=== PATIENT | female | born 1985 | race Caucasian/White ===

== ENCOUNTER 2024-04-16 20:09 | Emergency (ER) | payer BC, SELFPAY ==
[2024-04-16 20:10] VITALS: BMI 31.8
[2024-04-16 20:18] VITALS: BP 119/79; PULSE 106; RESP 18; TEMP 38.2; O2SAT 98
--- NOTE | 2024-04-16 20:29 | PD.EDRME ---
Rapid Medical Screening Exam RME Arrival date/time: 04/16/24 20:09 38 year old female present to ED for c/o of n/v/d I have greeted and performed a focused initial assessment of this patient. A comprehensive ED assessment and evaluation of the patient, analysis of all test results, and completion of the medical decision making process will be conducted by additional ED providers. Chief Complaint: Abdominal Pain Vital signs: Vital Signs Temperature 100.7 F H 04/16/24 20:18 Pulse Rate 106 H 04/16/24 20:18 Respiratory Rate 18 04/16/24 20:18 Blood Pressure 119/79 04/16/24 20:18 Pulse Oximetry (%) 98 04/16/24 20:18 Oxygen Delivery Method Room Air 04/16/24 20:18
[2024-04-16] MEDS: SODIUM CHLORIDE 0.9% 1000 ML 1,000 ML 999 ML IV (20:51)
[2024-04-16] MEDS: ONDANSETRON ODT 4 MG TABRAP PO (20:53)
[2024-04-16] MEDS: HYDROcodone/APAP 5/325 TABLET 1 TAB PO (20:54)
[2024-04-16 21:19] LABS: HCG,Qualitative Serum Negative
[2024-04-16 21:24] LABS: Alanine Aminotransferase 30 U/L (10-49); Albumin, Serum 4.7 gm/dL (3.5-5.0); Albumin/Globulin Ratio 1.9 (1.2-2.2); Alkaline Phosphatase 105 U/L (46-116); Anion Gap 7 (7-16); Aspartate Amino Transferase 30 U/L (0-34); BUN/Creatinine Ratio 11 Ratio (12-20); Bilirubin,Total 0.9 mg/dL (0.3-1.2); Blood Urea Nitrogen 10 mg/dL (9-23); Calcium 9.2 mg/dL (8.3-10.6); Calcium (Corrected) 9.2 mg/dL (8.5-10.1); Carbon Dioxide 27.5 mMol/L (20.0-31.0); Chloride 98 mMol/L (98-107); Creatinine (Component) 0.9 mg/dL (0.6-1.3); Estimated Creatinine Clearance 75.3 mL/min (>60); Globulin 2.5 gm/dL (2.3-3.5); Glucose 108 mg/dL (74-106); Lipase 27 U/L (12-53); Osmolality,Calculated 264 (275-295); Potassium 3.4 mMol/L (3.4-5.1); Sodium 132 mMol/L (136-145); Total Protein 7.2 gm/dL (5.7-8.2); eGFR > 60 See Note
[2024-04-16 21:37] LABS: Basophils % (Auto) 0 % (0-2.5); Eosinophils # (Auto) 0.1 Thou/mm3 (0.0-0.5); Eosinophils % (Auto) 1 % (0-10); Hematocrit 39.4 % (36.0-46.0); Hemoglobin 13.4 g/dL (12.0-16.0); Immature Granulocytes % (Auto) 0 % (0-0); Immature Granulocytes Auto 0.04 Thou/mm3 (0.00-0.00); Lymphocytes # (Auto) 0.7 Thou/mm3 (1.0-4.8); Lymphocytes % (Auto) 8 % (10-50); Mean Corpuscular Hemoglobin 27.7 pg (25.0-35.0); Mean Corpuscular Volume 81 fL (80-100); Monocytes # (Auto) 0.6 Thou/mm3 (0.0-0.8); Monocytes % (Auto) 7 % (0-12); Neutrophils % (Auto) 85 % (37-80); Nucleated Red Blood Cell % 0 /100 WBC (0); Platelet Count 256 Thou/mm3 (140-440); RDW Standard Deviation 39.8 fL (36.4-46.3); Red Blood Count 4.84 Miln/mm3 (4.00-5.20); White Blood Count 9.5 Thou/mm3 (3.6-11.0)
[2024-04-16 23:04] LABS: Collection Type, Urine Voided; RBC,Urine 0 /hpf (0-3); WBC,Urine 0 /hpf (0-5)
[2024-04-16 23:23] LABS: Bilirubin,Urine Negative (Negative); Blood,Urine Negative (Negative); Clarity,Urine Clear (Clear/Hazy); Color,Urine Lt-Yellow (Lt Yel-Yel); Glucose, Urine Negative (Negative); Ketones,Urine Negative (Negative); Leukocyte Esterase,Urine Negative (Negative); Nitrite,Urine Negative (Negative); Protein,Urine Negative (Neg - Trace); Specific Gravity,Urine 1.011 (1.001-1.035); Squamous Epithelial Cell,Urine 1 /hpf (0-5); Urobilinogen,Urine Negative mg/dL (0.0-1.0)
--- NOTE | 2024-04-16 23:38 | EDNOTE_ITS ---
<Statement entered by Rolanda Dsouza MD - 04/17/24 05:12> As co-signing physician, I was present and available for consult prn. I concur with the plan and care as documented by the midlevel provider. ED Abdominal Pain RME/HPI General Chief Complaint: Abdominal Pain Stated complaint: ABD PAIN, NV/D Time seen by provider: 04/16/24 23:38 Arrival date/time: 04/16/24 20:09 38 year old female present to emergency room with c/o of n/v/d for 2 days. pt report recently had bad pizza and people that ate had similar symptoms LOCATION: generalized periumbical abdominal pain SEVERITY: Symptoms are described as being severe with limitations on activities of daily living QUALITY: Symptoms are described as being cramping CONTEXT: The patient is unable to identify any inciting events. DURATION/TIMING: The symptoms started approximately 2 day ago and have been constant this then, and have been progressive getting worse. ASSOCIATED SYMPTOMS: The patient is unable to identify any other associated symptoms. MODIFYING FACTORS: The patient is unable to identify any alleviating or aggra vating symptoms. PERTINENT ROS: reports emesis is nonbloody, diarrhea is nonbloody, no recent foreign travel, no recent ingestion of raw seafood or meat, no head trauma, no headache, no chest pain, no orthostatis symptoms, denies any focal abdominal pain, denies any toxicological ingestions REVIEW OF SYSTEMS: See History of Present Illness - with the exception of those mentioned in the history of present illness, all other systems reviewed and reported as negative GENERAL: In general the patient is awake, interactive, in an emergency department gurney. HEAD/EYES/EARS/NOSE/THROAT: normo-cephalic, atraumatic, mucus membranes are moist, anicteric, palpebral conjunctiva is pink, trachea is midline. CARDIOVASCULAR: regular rate and regular rhythm, no murmurs, heart sounds are not distant, strong pulses in all four extremities that are equal and symmetric bilateral upper and lower extremities, normal capillary refill. CHEST/PULMONARY: normal chest rise and fall, good air movement, clear to auscultation bilaterally, normal inspiratory to expiratory ratios without evidence of respiratory distress. NECK: No midline/Paraspinal tenderness, no step off ROM/Strenght intact No Kernig and bruzinski sign. No trauma ABDOMEN: soft, generalized abdominal tenderness no masses appreciated BACK: normal range of motion without pain. NEUROLOGICAL: cranio-facial features are symmetric, moves all four extremities equally without obvious limitations or weakness. EXTREMITY: no tenderness to palpation over the long bones or large joints of the bilateral upper and lower extremities, no joint swelling, no joint erythema, no signs of trauma, no unilateral leg swelling and no peripheral edema. SKIN: warm, dry, well-perfused, no jaundice, no rash, no telangiectasias or petechia. PSYCH: calm, cooperative, no evidence of psychosis or agitation RME / HPI RME / HPI narrative: 04/16/24 20:09 38 year old female present to ED for c/o of n/v/d I have greeted and performed a focused initial assessment of this patient. A comprehensive ED assessment and evaluation of the patient, analysis of all test results, and completion of the medical decision making process will be conducted by additional ED providers. Related Data Home Medications ?Medication ?Instructions ?Recorded ?Confirmed escitalopram oxalate 20 mg tablet 20 mg PO QDAY 06/21/18 05/24/19 (Lexapro) fluticasone 500 mcg-salmeterol 50 1 inh inhalation BID 06/21/18 05/24/19 mcg/dose blistr powdr for inhalation (Advair Diskus) lorazepam 0.5 mg tablet (Ativan) 0.5 mg PO BID 06/21/18 05/24/19 montelukast 10 mg tablet 10 mg PO QPM 06/21/18 05/24/19 (Singulair) pantoprazole 20 mg tablet,delayed 20 mg PO QDAY 06/21/18 05/24/19 release (Protonix) propranolol 40 mg tablet 40 mg PO BID 06/21/18 05/24/19 ranitidine HCl 150 mg tablet 150 mg PO BID 06/21/18 05/24/19 sumatriptan succinate 100 mg 100 mg PO Q2H PRN Migraine Headache 06/21/18 05/24/19 tablet (Imitrex) Previous Rx's ?Medication ?Instructions ?Recorded cyclobenzaprine 7.5 mg tablet 7.5 mg PO BID PRN muscle spasm #20 03/07/19 tabs benzonatate 100 mg capsule See Rx Instructions .Route 05/24/19 (Navin Avina) .COMPLEX cough #30 caps cetirizine 5 mg-pseudoephedrine ER 1 tab PO Q12H #20 tabs 05/24/19 120 mg tablet,extended release,12hr (Zyrtec-D) ipratropium bromide 21 mcg (0.03 See Rx Instructions .Route 05/24/19 %) nasal spray .COMPLEX #30 mL prednisone 20 mg tablet See Rx Instructions PO QAM #9 tabs 05/24/19 ondansetron 4 mg disintegrating 4 mg PO Q8H PRN nausea and 04/16/24 tablet vomiting #20 tabs Allergies Allergy/AdvReac Type Severity Reaction Status Date / Time ciprofloxacin Allergy Unknown Verified 02/27/21 13:36 doxycycline Allergy Unknown Verified 02/27/21 13:36 gluten Allergy Abdominal Verified 02/27/21 13:36 Pain Course Course Course Narrative: Patient presenting with nausea, vomiting, and diarrhea.? Vital signs were reviewed.? Patient afebrile.? Abdominal exam is benign.? No evidence of acute surgical emergency or infection requiring antibiotics.? I considered biliary disease, bowel obstruction, colitis, mesenteric ischemia, appendicitis, urinary tract infection, infectious diarrhea, however, these are less likely given the history and exam.? While in ED patient was provided with IV fluids, zofran 4mg at which point patient stated that their symptoms had improved. Provided with prescription for zofran . Advised to continue Ibuprofen and Tylenol at home as needed for pain/fever. Patient is to followup with primary physician if symptoms continue. Advised to return to the ER if concern for inability to tolerate PO intake, dehydration, or other concerns. Plan:?? Discharge from ETC Ibuprofen/Acetaminophen for Pain/Fever Prescription for ondansetron for nausea. Pt was advised on supportive therapies, including increasing dietary fiber, eating smaller meals, refrain from eating copious amounts of irritating foods (fatty foods, milk products, chocolate, and caffeine), maintaining a food diary, advancing fluids as tolerated, refraining from EtOH consumption, decreasing stress, and increasing exercise. Maintain Fluid Intake: Pedialyte/Gatorade, Juice, Non-caffeinated Pop (Sprite) Patient to follow up with PCP or in ER should symptoms worsen or not improve. Patient verbally expressed understanding and all questions were addressed. Quality Measures none Orders Category Date Time Status Insert IV NOW Care 04/16/24 20:47 Completed CBC Stat Lab 04/16/24 20:41 Completed CMP [Comprehensive Metabolic Panel] Stat Lab 04/16/24 20:41 Completed HCG,Qualitative Serum Stat Lab 04/16/24 20:41 Completed Lipase Stat Lab 04/16/24 20:41 Completed UA [Urinalysis] Stat Lab 04/16/24 22:45 Completed Urine Culture Stat Lab 04/16/24 22:45 Received HYDROcodone*/APAP 5/325 [[place] 5/325] Med 04/16/24 20:28 Discontinued 1 tab PO X1 ONE Ondansetron Odt [Zofran Odt] Med 04/16/24 20:28 Discontinued 4 mg PO X1 ONE Sodium Chloride 0.9% 1000 ml [Ns] 1,000 ml Med 04/16/24 20:29 Discontinued IV 999 mls/hr Reevaluation(s) Reevaluation #1: pt is feeling better and comfortable to go home Vital Signs Vital signs: Vital Signs Temperature 100.7 F H 04/16/24 20:18 Pulse Rate 106 H 04/16/24 20:18 Respiratory Rate 18 04/16/24 20:18 Blood Pressure 119/79 04/16/24 20:18 Pulse Oximetry (%) 98 04/16/24 20:18 Oxygen Delivery Method Room Air 04/16/24 20:18 Abdominal Pain MDM Patient data External records reviewed:: None Clinical information provided by:: patient and family Social determinants that could affect healthcare access:: none Patient has the following chronic illnesses:: none How is presenting disease/condition affected by chronic disease/condition?: no chronic disease Evaluation data The following diagnostics were reviewed and interpreted by me:: lab results Lab and/or radiology exams considered but not ordered:: none Interpretation Summary: labs wnl Medications / Prescriptions Medications or Prescriptions considered but not ordered:: none Medication administrations:: Medication Administration History Discontinued Medications Hydrocodone Bitart/Acetaminophen (Hydrocodone/Apap 5/325 Tablet) 1 tab PO X1 ONE Stop: 04/16/24 20:29 Last Admin: 04/16/24 20:54 Dose: 1 tab Documented By: ERIN Sodium Chloride (Ns) 1,000 mls @ 999 mls/hr IV .Q1H1M ONE Stop: 04/16/24 21:29 Last Infusion: 04/16/24 22:59 Dose: Infused Documented By: Admin: 11/30/24 20:51 Dose: 999 mls/hr Documented By: ERIN Ondansetron HCl (Ondansetron Odt 4 Mg Tabrap) 4 mg PO X1 ONE; Protocol Stop: 04/16/24 20:29 Last Admin: 04/16/24 20:53 Dose: 4 mg Documented By: ERIN as state above Consultations Consultation(s) initiated? (list below): No Diagnosis Differential diagnosis abdominal pain: abdominal pain, gastroenteritis, pancreatitis and other (UTI ) Most likely diagnosis given after review of the tests above:: gastroenteritis Admission Indicated Admission indicated?: not indicated Admission Request Was there a request for admission?: No Disposition Plan Disposition Plan: Discharge Discharge Attestation Discharge Attestation: The patient and all family members were given an opportunity to ask questions and understood the discharge instructions. Discharge instructions specifically effects, indications for sooner follow up or return to the emergency department, and the expected course of current diagnosis. Patient condition: Stable Discharge Plan Plan Patient Disposition: HOME (Self Care) Health Concerns: Follow with PMD as directed Take tylenol or motrin as need Return to ED if sx worsen Prescriptions/Referrals Prescriptions/Med Rec: New ondansetron 4 mg tablet,disintegrating 4 mg PO Q8H PRN (Reason: nausea and vomiting) Qty: 20 0RF No Action ipratropium bromide 0.03 % spray,non-aerosol See Rx Instructions .Route .COMPLEX Qty: 30 0RF Rx Instructions: 2 sprays to each nostril q6-8 hours prn congestion; wait 30 seconds between sprays prednisone 20 mg tablet See Rx Instructions PO QAM Qty: 9 0RF Rx Instructions: PO QAM; Take 40mg (2 tabs) PO QAM x 3 days, then 20mg (1 tab) PO QAM x 3 days benzonatate [Tessalon Perles] 100 mg capsule See Rx Instructions .Route .COMPLEX Qty: 30 0RF Rx Instructions: 1-2 cap(s) PO Q8 hours prn cough cetirizine-pseudoephedrine [Zyrtec-D] 5-120 mg tablet extended release 12 hr 1 tab PO Q12H Qty: 20 0RF cyclobenzaprine 7.5 mg tablet 7.5 mg PO BID PRN (Reason: muscle spasm) Qty: 20 0RF sumatriptan succinate [Imitrex] 100 mg Tablet 100 mg PO Q2H PRN (Reason: Migraine Headache) pantoprazole [Protonix] 20 mg Tablet,Delayed Release (Dr/Ec) 20 mg PO QDAY propranolol 40 mg Tablet 40 mg PO BID lorazepam [Ativan] 0.5 mg Tablet 0.5 mg PO BID ranitidine HCl 150 mg Tablet 150 mg PO BID fluticasone propion-salmeterol [Advair Diskus] 500-50 mcg/dose Blister With Device 1 inh INHALATION BID montelukast [Singulair] 10 mg Tablet 10 mg PO QPM escitalopram oxalate [Lexapro] 20 mg Tablet 20 mg PO QDAY Referrals: Estrellita Marshall MD [Primary Care Provider] - In 1 week Problem List Clinical Impression: Abdominal pain Patient/Caregiver Discharge Instructions Education Materials: Abdominal Pain Print Language: Uzbek Stand Alone Forms: Janice Award Info., Patient Portal Info Letter
[2024-04-16 23:53] VITALS: BP 110/70; PULSE 94; RESP 18; TEMP 37.2; O2SAT 96
== END 2024-04-16 23:54 | disposition home or self-care (01) ==
PROVIDERS: Physician Assistant; Emergency Provider Emergency Medicine; PCP Internal Medicine
DX: R10.84 Generalized abdominal pain (principal); R11.2 Nausea with vomiting, unspecified; R19.7 Diarrhea, unspecified
CPT/HCPCS: 36415; 80053; 81001; 83690; 84703; 85025; 87086; 96360; 96361; 99284; J7030; Q0162; A9270

== ENCOUNTER 2025-02-25 15:11 | Inpatient (IN) | payer BC, SELFPAY ==
[2025-02-25 15:12] VITALS: BMI 22.8
[2025-02-25 15:39] VITALS: BP 133/89; PULSE 92; RESP 18; TEMP 36.7; O2SAT 96; BMI 20.4
--- NOTE | 2025-02-25 16:09 | XR_ITS ---
Examination: CT abdomen with intravenous contrast CT pelvis with intravenous contrast 2-D coronal reconstructions 2-D sagittal reconstructions Date and time of exam: February 25, 2025, 0752 hours INDICATIONS: Lower abdominal pain bloody stools beginning 2 days ago COMPARISON: May 21, 2019. CTDI: vol (mGy) 4.62 DLP: (mGycm) 216 Technique: Multiple axial sections of the abdomen and pelvis have been obtained. 64 slice high-resolution scanner used. 3 mm axial sections have been obtained, post intravenous injection 60 cc [id number] 2-D sagittal, coronal reconstructions obtained. Low dose protocols were performed. One or more of the following dose reduction techniques were used; automated exposure control, adjustment of the mA and/or KV according to patient size, use of iterative reconstruction technique. Findings: No focal liver or splenic lesions. Absent gallbladder No pancreatic mass. No renal or ureteral calculi, no hydronephrosis Fluid-filled small bowel loops in the pelvis Absent appendix No diverticulitis Intact urinary bladder No pelvic mass Rectal wall does not appear thickened Moderate to advanced disc narrowing L5-S1 IMPRESSION: No renal or ureteral calculi, no hydronephrosis Absent appendix Fluid distended small bowel loops, consider ileus, enteritis such as Crohn disease Rectal wall does not appear thickened
--- NOTE | 2025-02-25 16:09 | PD.EDABDPN ---
ED Abdominal Pain RME/HPI General Chief Complaint: Abdominal Pain Stated complaint: ABD PAIN WITH BLACK TARRY STOOL TODAY Time seen by provider: 02/25/25 16:02 Arrival date/time: 02/25/25 15:11 Limitations: no limitations RME / HPI RME / HPI narrative: 39-year-old female with 2-day history of worsening abdominal pain nausea vomiting and black stools that started today. Denies history of alcohol abuse or daily NSAID use. Does have an extensive surgical history. Including lap maged, hysterectomy and nephrectomy, appendectomy. Denies history of small bowel obstruction in the past. No fever. States the abdominal pain is diffuse. And did have a bowel movement this morning and that is how she noticed the black stools and what prompted her to come in. Related Data Home Medications ?Medication ?Instructions ?Recorded ?Confirmed escitalopram oxalate 20 mg tablet 20 mg PO QDAY 06/21/18 05/24/19 (Lexapro) fluticasone 500 mcg-salmeterol 50 1 inh inhalation BID 06/21/18 05/24/19 mcg/dose blistr powdr for inhalation (Advair Diskus) lorazepam 0.5 mg tablet (Ativan) 0.5 mg PO BID 06/21/18 05/24/19 montelukast 10 mg tablet 10 mg PO QPM 06/21/18 05/24/19 (Singulair) pantoprazole 20 mg tablet,delayed 20 mg PO QDAY 06/21/18 05/24/19 release (Protonix) propranolol 40 mg tablet 40 mg PO BID 06/21/18 05/24/19 ranitidine HCl 150 mg tablet 150 mg PO BID 06/21/18 05/24/19 sumatriptan succinate 100 mg 100 mg PO Q2H PRN Migraine Headache 06/21/18 05/24/19 tablet (Imitrex) Previous Rx's ?Medication ?Instructions ?Recorded cyclobenzaprine 7.5 mg tablet 7.5 mg PO BID PRN muscle spasm #20 03/07/19 tabs benzonatate 100 mg capsule See Rx Instructions .Route 05/24/19 (Navin Avina) .COMPLEX cough #30 caps cetirizine 5 mg-pseudoephedrine ER 1 tab PO Q12H #20 tabs 05/24/19 120 mg tablet,extended release,12hr (Zyrtec-D) ipratropium bromide 21 mcg (0.03 See Rx Instructions .Route 05/24/19 %) nasal spray .COMPLEX #30 mL prednisone 20 mg tablet See Rx Instructions PO QAM #9 tabs 05/24/19 ondansetron 4 mg disintegrating 4 mg PO Q8H PRN nausea and 04/16/24 tablet vomiting #20 tabs Allergies Allergy/AdvReac Type Severity Reaction Status Date / Time ciprofloxacin Allergy Unknown Verified 02/25/25 15:15 doxycycline Allergy Unknown Verified 02/25/25 15:15 gluten Allergy Abdominal Verified 02/25/25 15:15 Pain Review of Systems Review of Systems Systems Reviewed: All systems reviewed, normal except as documented Gastrointestinal Gastrointestinal: Reports as per HPI ED Exam General Limitations: Present no limitations General appearance: Present alert and in no apparent distress Head Head exam: Present atraumatic Eye Eye exam: Present normal appearance, PERRL and EOMI ENT ENT exam: Present normal exam, normal oropharynx and mucous membranes moist Neck Neck exam: Present normal inspection, full ROM and trachea midline Chest Chest inspection: Present normal inspection and symmetric chest wall rise Respiratory Respiratory exam: Present normal lung sounds bilaterally Cardiovascular Cardiovascular exam: Present regular rate, normal rhythm and normal heart sounds Abdominal Exam Abdominal exam: Present soft, tenderness (diffuse ttp) and normal bowel sounds Rectal Exam Rectal exam: Present black stool Extremities Exam Extremities exam: Present normal inspection and full ROM Back Exam Back exam: Present normal inspection and full ROM Neurological Exam Neurological exam: Present alert, oriented X3 and CN II-XII intact Psychiatric Psychiatric exam: Present normal affect and normal mood Skin Skin exam: Present warm, dry, intact and normal color Course Quality Measures none Orders Category Date Time Status CT Screening NOW Care 02/25/25 16:10 Active Insert IV NOW Care 02/25/25 16:09 Active Insert NG / OG tube NOW Care 02/25/25 21:[address] abdomen pelvis w con Stat Exams 02/25/25 16:09 Completed Beta HCG,Quantitative Stat Lab 02/25/25 18:20 Completed CBC Stat Lab 02/25/25 16:27 Completed CMP [Comprehensive Metabolic Panel] Stat Lab 02/25/25 16:27 Completed Drug Screen,Urine Stat Lab 02/25/25 18:32 Completed HCG,Qualitative Serum Stat Lab 02/25/25 16:27 Completed Lipase Stat Lab 02/25/25 16:27 Completed PT [Prothrombin Time with INR] Stat Lab 02/25/25 16:27 Completed Type and Screen Stat Lab 02/25/25 17:04 Completed UA [Urinalysis] Stat Lab 02/25/25 18:32 Completed ALPRazoLAM [Xanax] Med 02/25/25 18:24 Discontinued 1 mg PO X1 ONE DiphenhydrAMINE INJ [Benadryl Inj] Med 02/25/25 21:26 Discontinued 12.5 mg IVP X1 ONE HYDROcodone*/APAP 5/325 [[place] 5/325] Med 02/25/25 16:09 Discontinued 1 tab PO X1 ONE Morphine* Inj Med 02/25/25 19:33 Discontinued 4 mg IVP X1 ONE Morphine* Inj Med 02/25/25 21:27 Discontinued 4 mg IVP X1 ONE Ondansetron Inj [Zofran Inj] Med 02/25/25 21:26 Discontinued 4 mg IVP X1 ONE Ondansetron Odt [Zofran Odt] Med 02/25/25 18:24 Discontinued 4 mg PO X1 ONE Pantoprazole Inj [Protonix Inj] Med 02/25/25 21:40 Discontinued 80 mg IVP X1 ONE fentaNYL INJ [Sublimaze Inj] Med 02/25/25 18:16 Discontinued 75 mcg IVP X1 ONE Vital Signs Vital signs: Vital Signs Temperature 98.1 F 02/25/25 15:39 Pulse Rate 92 02/25/25 15:39 Respiratory Rate 18 02/25/25 15:39 Blood Pressure 133/89 H 02/25/25 15:39 Pulse Oximetry (%) 96 02/25/25 15:39 Oxygen Delivery Method Room Air 02/25/25 15:39 Abdominal Pain MDM Patient data External records reviewed:: [facility] previous records Clinical information provided by:: patient and family Social determinants that could affect healthcare access:: other (specify) Patient has the following chronic illnesses:: Extensive surgical history How is presenting disease/condition affected by chronic disease/condition?: exacerbated by Evaluation data The following diagnostics were reviewed and interpreted by me:: lab results and radiology exam(s) Lab and/or radiology exams considered but not ordered:: All imaging considered was ordered Interpretation Summary: CBC with no anemia normal CMP normal lipase Abnormal hCG suspect false positive due to no uterus CT did show fluid-filled small bowel loops Medications / Prescriptions Medications or Prescriptions considered but not ordered:: all meds considered were given Medication administrations:: Medication Administration History Discontinued Medications Hydrocodone Bitart/Acetaminophen (Hydrocodone/Apap 5/325 Tablet) 1 tab PO X1 ONE Stop: 02/25/25 16:10 Last Admin: 02/25/25 16:44 Dose: 1 tab Documented By: ED Alprazolam (Alprazolam 0.25 Mg Tablet) 1 mg PO X1 ONE Stop: 02/25/25 18:25 Last Admin: 02/25/25 18:36 Dose: 1 mg Documented By: TM Diphenhydramine HCl (Diphenhydramine Inj 50 Mg/Ml Vial) 12.5 mg IVP X1 ONE Stop: 02/25/25 21:27 Fentanyl Citrate (Fentanyl Cit Inj 50 Mcg/Ml Amp 2ml) 75 mcg IVP X1 ONE Stop: 02/25/25 18:17 Last Admin: 02/25/25 18:31 Dose: 75 mcg Documented By: TM Morphine Sulfate (Morphine Sulf Inj 4 Mg/Ml Vial) 4 mg IVP X1 ONE Stop: 02/25/25 19:34 Last Admin: 02/25/25 19:42 Dose: 4 mg Documented By: CCT Morphine Sulfate (Morphine Sulf Inj 4 Mg/Ml Vial) 4 mg IVP X1 ONE Stop: 02/25/25 21:28 Ondansetron HCl (Ondansetron Odt 4 Mg Tabrap) 4 mg PO X1 ONE; Protocol Stop: 02/25/25 18:25 Last Admin: 02/25/25 18:36 Dose: 4 mg Documented By: TM Ondansetron HCl (Ondansetron Inj 2 Mg/Ml Inj 2 Ml) 4 mg IVP X1 ONE; Protocol Stop: 02/25/25 21:27 Pantoprazole Sodium (Pantoprazole Inj 40 Mg Vial) 80 mg IVP X1 ONE Stop: 02/25/25 21:41 see above Consultations Consultation(s) initiated? (list below): Yes Consultation #1 (Physician, Specialty, Details): Spoke with Dr. Hernandez agrees with admission Time: 21:43 Diagnosis Differential diagnosis abdominal pain: abdominal pain, acute appendicitis, constipation, diverticulitis, gastroenteritis, pancreatitis, small bowel obstruction and other (GI bleed) Most likely diagnosis given after review of the tests above:: 1. Small bowel ileus 2. Melena 3. vomiting 4. abdominal pain Admission Indicated Admission indicated?: indicated Admission Request Was there a request for admission?: Yes Admission Attestation Admission request attestation: Discussed case with [] from Hospitalist service regarding admission. Discussed patients ED course, exam findings, labs, and radiology results. The Hospitalist [agrees,declines] to accept the patient for admission. Disposition Plan Disposition Plan: Admit Discharge Plan Plan Patient Disposition: Admit Acute Care w/in Hospital Discharge Disposition comment: stable at time of admit, admitted to Dr. Hernandez Prescriptions/Referrals Prescriptions/Med Rec: No Action ipratropium bromide 0.03 % spray,non-aerosol See Rx Instructions .Route .COMPLEX Qty: 30 0RF Rx Instructions: 2 sprays to each nostril q6-8 hours prn congestion; wait 30 seconds between sprays prednisone 20 mg tablet See Rx Instructions PO QAM Qty: 9 0RF Rx Instructions: PO QAM; Take 40mg (2 tabs) PO QAM x 3 days, then 20mg (1 tab) PO QAM x 3 days benzonatate [Tessalon Perles] 100 mg capsule See Rx Instructions .Route .COMPLEX Qty: 30 0RF Rx Instructions: 1-2 cap(s) PO Q8 hours prn cough cetirizine-pseudoephedrine [Zyrtec-D] 5-120 mg tablet extended release 12 hr 1 tab PO Q12H Qty: 20 0RF cyclobenzaprine 7.5 mg tablet 7.5 mg PO BID PRN (Reason: muscle spasm) Qty: 20 0RF sumatriptan succinate [Imitrex] 100 mg Tablet 100 mg PO Q2H PRN (Reason: Migraine Headache) pantoprazole [Protonix] 20 mg Tablet,Delayed Release (Dr/Ec) 20 mg PO QDAY propranolol 40 mg Tablet 40 mg PO BID lorazepam [Ativan] 0.5 mg Tablet 0.5 mg PO BID ranitidine HCl 150 mg Tablet 150 mg PO BID fluticasone propion-salmeterol [Advair Diskus] 500-50 mcg/dose Blister With Device 1 inh INHALATION BID montelukast [Singulair] 10 mg Tablet 10 mg PO QPM escitalopram oxalate [Lexapro] 20 mg Tablet 20 mg PO QDAY ondansetron 4 mg tablet,disintegrating 4 mg PO Q8H PRN (Reason: nausea and vomiting) Qty: 20 0RF Referrals: Estrellita Marshall MD [Primary Care Provider] - In 1 week Problem List Clinical Impression: Ileus, Melena, Vomiting, Abdominal pain Patient/Caregiver Discharge Instructions Print Language: Malay Stand Alone Forms: Janice Award Info., Patient Portal Info Letter PA/PLUMBING CONTRACTOR Supervising Physician PA/PLUMBING CONTRACTOR Supervising Physician: Dr. henry
[2025-02-25] MEDS: HYDROcodone/APAP 5/325 TABLET 1 TAB PO (16:44)
[2025-02-25 17:00] LABS: Basophils # (Auto) 0.1 Thou/mm3 (0.0-0.2); Basophils % (Auto) 1 % (0-2.5); Eosinophils # (Auto) 0.1 Thou/mm3 (0.0-0.5); Eosinophils % (Auto) 2 % (0-10); Hematocrit 41.0 % (36.0-46.0); Hemoglobin 14.5 g/dL (12.0-16.0); Immature Granulocytes Auto 0.02 Thou/mm3 (0.00-0.00); Lymphocytes # (Auto) 2.8 Thou/mm3 (1.0-4.8); Lymphocytes % (Auto) 40 % (10-50); Mean Corpuscular HGB Conc 35.4 g/dl (31.0-37.0); Mean Corpuscular Hemoglobin 28.9 pg (25.0-35.0); Mean Corpuscular Volume 82 fL (80-100); Monocytes # (Auto) 0.6 Thou/mm3 (0.0-0.8); Monocytes % (Auto) 8 % (0-12); Neutrophils # (Auto) 3.4 Thou/mm3 (1.8-7.7); Neutrophils % (Auto) 49 % (37-80); Nucleated Red Blood Cell # 0.00 Thou/mm3 (0.00-0.00); Nucleated Red Blood Cell % 0 /100 WBC (0); Platelet Count 295 Thou/mm3 (140-440); RDW Standard Deviation 38.0 fL (36.4-46.3); Red Blood Count 5.02 Miln/mm3 (4.00-5.20); White Blood Count 7.0 Thou/mm3 (3.6-11.0)
[2025-02-25 17:12] LABS: INR 1.0 (0.9-1.3); Prothrombin Time 10.9 Seconds (9.0-12.2)
[2025-02-25 17:17] LABS: HCG,Qualitative Serum Positive
[2025-02-25 17:20] LABS: Alanine Aminotransferase 12 U/L (10-49); Albumin, Serum 4.4 gm/dL (3.5-5.0); Albumin/Globulin Ratio 1.8 (1.2-2.2); Alkaline Phosphatase 67 U/L (46-116); Anion Gap 13 (7-16); Aspartate Amino Transferase 17 U/L (0-34); BUN/Creatinine Ratio 6 Ratio (12-20); Bilirubin,Total 0.4 mg/dL (0.3-1.2); Blood Urea Nitrogen 5 mg/dL (9-23); Calcium 9.9 mg/dL (8.3-10.6); Calcium (Corrected) 9.9 mg/dL (8.5-10.1); Carbon Dioxide 26.0 mMol/L (20.0-31.0); Chloride 102 mMol/L (98-107); Creatinine (Component) 0.9 mg/dL (0.6-1.3); Estimated Creatinine Clearance 70.9 mL/min (>60); Globulin 2.4 gm/dL (2.3-3.5); Glucose 102 mg/dL (74-106); Lipase 32 U/L (12-53); Osmolality,Calculated 278 (275-295); Potassium 3.4 mMol/L (3.4-5.1); Sodium 141 mMol/L (136-145); Total Protein 6.8 gm/dL (5.7-8.2); eGFR > 60 See Note
[2025-02-25 17:33] VITALS: BP 151/96; PULSE 82; RESP 19; TEMP 36.9; O2SAT 98
--- NOTE | 2025-02-25 17:56 | PC.NURSE ---
SPOKE W/BANK OFFICER WHO TOOK BLOOD, PTS HCG CAME BACK POSITIVE, TOLD BANK OFFICER WE WILL NEED A RE-DRAW TO CONFIRM PT STATES SHE HAS HAD A HYSTERECTOMY AND IT IS NOT POSSIBLE FOR HER TO BE
--- NOTE | 2025-02-25 18:04 | PC.NURSE ---
SPOKE W/SAMIRA AT THE LAB WHO WILL LOOK INTO RESULTS
[2025-02-25] MEDS: fentaNYL CIT INJ 50 mCg/ML AMP 2ML 75 MCG IVP (18:31)
[2025-02-25] MEDS: ONDANSETRON ODT 4 MG TABRAP PO (18:36)
[2025-02-25 18:40] LABS: Collection Type, Urine Clean Catch; RBC,Urine 0 /hpf (0-3); Squamous Epithelial Cell,Urine 0 /hpf (0-5)
[2025-02-25 18:49] LABS: Bilirubin,Urine Negative (Negative); Blood,Urine Negative (Negative); Clarity,Urine Clear (Clear/Hazy); Color,Urine Lt-Yellow (Lt Yel-Yel); Glucose, Urine Negative (Negative); Ketones,Urine Negative (Negative); Leukocyte Esterase,Urine Negative (Negative); Nitrite,Urine Negative (Negative); PH,Urine 8.0 (5.0-7.0); Protein,Urine Negative (Neg - Trace); Specific Gravity,Urine 1.006 (1.001-1.035); Urobilinogen,Urine Negative mg/dL (0.0-1.0); WBC,Urine 1 /hpf (0-5)
[2025-02-25 18:55] LABS: Amphetamine/Methamp Scrn,U Negative (Negative); Barbiturate Screen,Urine Negative (Negative); Benzodiazepines Screen,Urine Negative (Negative); Benzoylecgonine Screen, Ur Negative (Negative); Fentanyl Screen,Urine Negative (Negative); Opiate Screen,Urine Negative (Negative); THC Screen,Urine Negative (Negative)
[2025-02-25 19:15] LABS: Beta HCG,Quantitative 7 mIU/mL (<5.0)
[2025-02-25 19:33] VITALS: BP 141/102; PULSE 79; RESP 18; TEMP 36.4; O2SAT 99
[2025-02-25] MEDS: MORPHINE SULF INJ 4 MG/ML VIAL IVP ×2 (19:42→21:55)
--- NOTE | 2025-02-25 19:53 | PC.NURSE ---
Pt taken to CT via [facility]
[2025-02-25] MEDS: ONDANSETRON INJ 2 MG/ML INJ 2 ML 4 MG IVP (21:55)
[2025-02-25 23:00] VITALS: BP 128/100; PULSE 89; RESP 16; TEMP 36.6; O2SAT 99
--- NOTE | 2025-02-25 23:02 | PD.RESHP ---
Documentation for date of: 02/25/25 HPI History of Present Illness Chief complaint: Abdominal pain and melena. History of present illness: This is a 39 years old female with past medical history of duodenal ulcers, gastric ulcers cholecystectomy ,appendectomy, bilateral oophorectomy with hysterectomy, multinodular goiter, asthma, RICK, GERD, IBS presented to the ED with complaints of abdominal pain and melena. She has been experiencing multiple episodes of dark brown stools approximately 5 times since yesterday. She has been experiencing umbilical abdominal pain since yesterday associated with nausea and bilious vomiting approximately 5 episodes since morning. She says this abdominal pain is 10 out of 10 on pain scale radiating to the back. She denies any urinary frequency, urgency, chest pain, chest palpitations, fevers ,cough. She denies any intake of painkillers like ibuprofen and iron pills. On ED visit vitals BP 128/100, pulse rate 95, respiratory 16, temperature 97.9 saturating 98% on room. Labs- Beta HcG -Positive Pertinent imaging findings CT abdomen showing fluid distended small bowel loops?consider ileus or enteritis. Past medical history: Multinodular goiter not on any medications, asthma on medications, RICK?CPAP, GERD takes omeprazole, IBS, anxiety takes medication. Takes Zepbound. Past surgical history: Cholecystectomy, appendectomy, B/L salpingoopherectomy takes hormonal contraceptives. Allergic history: Sensitive to gluten, ciprofloxacin. Family history: History of Crohn disease in her sister, breast cancer in grandmother, ovarian cancer on her maternal side. Social history: Denies any alcohol ,smoking or any other drug usage. Review of Systems Review of Systems Systems Reviewed: All systems reviewed, normal except as documented Exam Vital Signs Temp Pulse Resp BP Pulse Ox O2 Del Method 97.5 F 79 18 141/102 H 99 Room Air 02/25/25 19:33 02/25/25 19:33 02/25/25 19:33 02/25/25 19:33 02/25/25 19:33 02/25/25 19:33 Narrative Exam GENERAL: NAD, AAOx3 HEENT: Moist mucosa. Eyes open, symmetrical, & clear CARDIO: Rapid regular rhythm Noted. No Murmurs. PULM: No noted coughing/dyspnea CTA B/L, no R/W/R GI: Abdomen soft, nondistended, Tenderness on palpation of umbilical ,suprapubic and LLQ. SKIN/MSK/EXT: No wounds/rashes/amputations, no pain on palpation,edema. Pedal pulses present B/L NEURO: AAOx3, no focal neuro deficits, able to move all 4 extremities Results: Labs 02/26/25 02:33 02/26/25 02:33 Labs: Short CBC 02/25/25 Range/Units 16:27 WBC 7.0 (3.6-11.0) Thou/mm3 Hgb 14.5 (12.0-16.0) g/dL Hct 41.0 (36.0-46.0) % Plt Count 295 (140-440) Thou/mm3 BMP 02/25/25 16:27 Sodium 141 Potassium 3.4 Chloride 102 Carbon Dioxide 26.0 BUN 5 L Creatinine 0.9 Glucose 102 Calcium 9.9 Liver Function 02/25/25 Range/Units 16:27 Total Bilirubin 0.4 (0.3-1.2) mg/dL AST 17 (0-34) U/L ALT 12 (10-49) U/L Alkaline Phosphatase 67 (46-116) U/L Albumin 4.4 (3.5-5.0) gm/dL Urine 02/25/25 Range/Units 18:32 Urine Color Lt-Yellow (Lt Yel-Yel) Urine Clarity Clear (Clear/Hazy) Urine pH 8.0 H (5.0-7.0) Ur Specific [place] 1.006 (1.001-1.035) Urine Protein Negative (Neg - Trace) Urine Glucose (UA) Negative (Negative) Quality Measures Quality Measures none Medications Home Medications and Allergies Home Medications ?Medication ?Instructions ?Recorded ?Confirmed ?Type escitalopram oxalate 20 mg tablet 20 mg PO HS 06/21/18 02/26/25 History (Lexapro) bupropion HCl 100 mg tablet 100 mg PO BID 02/26/25 02/26/25 History omeprazole 40 mg capsule,delayed 40 mg PO QAM 02/26/25 02/26/25 History release Allergies Allergy/AdvReac Type Severity Reaction Status Date / Time ciprofloxacin Allergy Unknown Verified 02/25/25 15:15 doxycycline Allergy Unknown Verified 02/25/25 15:15 gluten Allergy Abdominal Verified 02/25/25 15:15 Pain Visit Medications Acetaminophen (Acetaminophen 325 Mg Tablet) 650 mg PO Q6H PRN PRN Reason: Fever >100.4 Stop: 03/27/25 22:52 Acetaminophen (Acetaminophen 325 Mg Tablet) 650 mg PO Q6H PRN PRN Reason: PAIN SCALE 1-3 (mild Stop: 03/27/25 22:58 Morphine Sulfate (Morphine Sulf Inj 4 Mg/Ml Vial) 4 mg IVP Q4HR PRN PRN Reason: abdominal pain Stop: 03/02/25 22:58 Ondansetron HCl (Ondansetron Inj 2 Mg/Ml Inj 2 Ml) 4 mg IVP Q6H PRN; Protocol PRN Reason: NAUSEA OR VOMITING Stop: 03/27/25 22:52 Discontinued Medications Hydrocodone Bitart/Acetaminophen (Hydrocodone/Apap 5/325 Tablet) 1 tab PO X1 ONE Stop: 02/25/25 16:10 Last Admin: 02/25/25 16:44 Dose: 1 tab Alprazolam (Alprazolam 0.25 Mg Tablet) 1 mg PO X1 ONE Stop: 02/25/25 18:25 Last Admin: 02/25/25 18:36 Dose: 1 mg Diphenhydramine HCl (Diphenhydramine Inj 50 Mg/Ml Vial) 12.5 mg IVP X1 ONE Stop: 02/25/25 21:27 Last Admin: 02/25/25 21:55 Dose: 12.5 mg Fentanyl Citrate (Fentanyl Cit Inj 50 Mcg/Ml Amp 2ml) 75 mcg IVP X1 ONE Stop: 02/25/25 18:17 Last Admin: 02/25/25 18:31 Dose: 75 mcg Morphine Sulfate (Morphine Sulf Inj 4 Mg/Ml Vial) 4 mg IVP X1 ONE Stop: 02/25/25 19:34 Last Admin: 02/25/25 19:42 Dose: 4 mg Morphine Sulfate (Morphine Sulf Inj 4 Mg/Ml Vial) 4 mg IVP X1 ONE Stop: 02/25/25 21:28 Last Admin: 02/25/25 21:55 Dose: 4 mg Ondansetron HCl (Ondansetron Odt 4 Mg Tabrap) 4 mg PO X1 ONE; Protocol Stop: 02/25/25 18:25 Last Admin: 02/25/25 18:36 Dose: 4 mg Ondansetron HCl (Ondansetron Inj 2 Mg/Ml Inj 2 Ml) 4 mg IVP X1 ONE; Protocol Stop: 02/25/25 21:27 Last Admin: 02/25/25 21:55 Dose: 4 mg Pantoprazole Sodium (Pantoprazole Inj 40 Mg Vial) 80 mg IVP X1 ONE Stop: 02/25/25 21:41 Last Admin: 02/25/25 21:56 Dose: 80 mg Assessment & Plan Plan This is a 39 years old female with past medical history of duodenal ulcers, gastric ulcers cholecystectomy ,appendectomy, bilateral oophorectomy with hysterectomy, multinodular goiter, asthma, RICK, GERD, IBS presented to the ED with complaints of abdominal pain and melena. She was admitted for possible GI bleed. #? Upper GI bleed History of duodenal ulcer, gastric ulcers Melena, abdominal pain Loading dose of Protonix was given ?Gastroenterology consulted. ?Starting n.p.o.. ?Possible endoscopy tomorrow. -Iv Pantap 40mg BID ordered. # Abdominal pain 2/2 ileus vs enteritis vs delayed gastric emptying Umbilical abdominal pain 10 out of [address] abdomen showing fluid distended small bowel loops. Ondansetron given. IV morphine given in ED. - NG Tube placed, to be placed on LIS ?Starting on Dilaudid. - Starting on Ringer lactate. # Asthma. Takes levalbuterol and Adavir diskus. # GERD Takes omeprazole 40 mg # Anxiety Takes Lexapro 20 mg and Wellbutrin. Code status: Full DVT prophylaxis:SCD GI prophylaxis: Zofran Diet: NPO [place]: None Lines: PIV Supplemental O2: none Disposition: Med Tele I discussed this case with my senior Dr. Fleming and my attending Dr. Hernandez. Shirlene dillon MD-[id number] Attending Provider Attestation/Addendum I, Alejandrina Hernandez DO, attest that I was physically present for the chapman portions of the service and evaluated the patient with the resident and I reviewed and discussed the case with the resident and agree with the resident's findings and plans of care as documented above Patient is a 39-year-old female with past medical history of GERD, reported celiac's disease, duodenal ulcers who presents to the ED with complaint of melena that was noted today.? Patient states that she has always had stomach issues .? She has a history of hysterectomy, oophorectomy salpingo ectomy, appendectomy, cholecystectomy, .? However, she states that she had about 4-5 black tarry bowel movements this morning.? She has been having intermittent abdominal pain associated with nausea and vomiting.? Patient underwent endoscopy and capsule endoscopy in the past during which she was diagnosed with gastric ulcers.? She also stated that she had lost about 60 pounds from July after starting tirzepatide.?? Patient states that her last shot was about [address] abdomen and pelvis was done in the ED showing fluid-filled small bowel loops in the pelvis concerning for ileus versus enteritis.? She denies any alcohol or NSAID use.? She does endorse having some mucus in her stools.? She states that [place] has not been helping with her pain, but morphine has helped somewhat.? Decision was made to admit patient for further workup of medical management of possible ileus versus enteritis.? Stomach does appear to be very distended on CAT scan, concerning for pyloric stenosis versus delayed gastric emptying.? Will continue with pain control as needed.Will consult GI and start patient on PPI.? NG tube was placed in ED will place on low intermittent suction.? Will monitor monitor H&H.? Will keep patient n.p.o. at this time.
--- NOTE | 2025-02-25 23:15 | XR_ITS ---
Examination: Abdomen AP single view Technique: AP portable supine abdomen, single view Exam date and time: February 26, 2025, 0006 hours INDICATIONS: Orogastric tube placement FINDINGS: Orogastric tube tip body of the stomach Moderate stool throughout the colon No free air IMPRESSION: Orogastric tube in the stomach satisfactory position
[2025-02-26] VITALS (10 sets, daily range): BP systolic 107–140; BP diastolic 66–97; PULSE 70–95; RESP 15–20; TEMP 36.2–36.8; O2SAT 92–99; BMI 23.2
--- NOTE | 2025-02-26 | PC.NURSE ---
Report given to YU Cooper/YU Santamaria Med-surg
[2025-02-26] MEDS: RINGERS LACTATED 1000 ML 1,000 ML 100 ML IV ×3 (01:09→22:00)
[2025-02-26] MEDS: HYDROmorphone INJ 2 MG/ML VIAL 1 MG IVP ×4 (01:22→20:13)
--- NOTE | 2025-02-26 01:57 | XR_ITS ---
EXAMINATION: AP chest single view TECHNIQUE: AP portable upright chest single view Date and time: February 26, 2025, 021 hours, comparison February 27, 2021 INDICATIONS: Reposition orogastric tube FINDINGS: Orogastric tube proximal duodenum Normal heart size Lungs are clear IMPRESSION: Orogastric tube tip proximal duodenum
[2025-02-26 02:43] LABS: Basophils # (Auto) 0.0 Thou/mm3 (0.0-0.2); Basophils % (Auto) 0 % (0-2.5); Eosinophils # (Auto) 0.0 Thou/mm3 (0.0-0.5); Eosinophils % (Auto) 1 % (0-10); Hematocrit 40.3 % (36.0-46.0); Hemoglobin 13.7 g/dL (12.0-16.0); Immature Granulocytes Auto 0.01 Thou/mm3 (0.00-0.00); Lactate (Lactic Acid) 0.4 mMol/L (0.4-2.0); Lymphocytes # (Auto) 1.9 Thou/mm3 (1.0-4.8); Lymphocytes % (Auto) 23 % (10-50); Mean Corpuscular HGB Conc 34.0 g/dl (31.0-37.0); Mean Corpuscular Hemoglobin 28.4 pg (25.0-35.0); Mean Corpuscular Volume 83 fL (80-100); Monocytes # (Auto) 0.6 Thou/mm3 (0.0-0.8); Monocytes % (Auto) 7 % (0-12); Neutrophils # (Auto) 5.8 Thou/mm3 (1.8-7.7); Neutrophils % (Auto) 70 % (37-80); Nucleated Red Blood Cell # 0.00 Thou/mm3 (0.00-0.00); Nucleated Red Blood Cell % 0 /100 WBC (0); Platelet Count 234 Thou/mm3 (140-440); RDW Standard Deviation 39.5 fL (36.4-46.3); Red Blood Count 4.83 Miln/mm3 (4.00-5.20); White Blood Count 8.3 Thou/mm3 (3.6-11.0)
--- NOTE | 2025-02-26 03:15 | PC.NURSE ---
MD Fischer seen the CXR and per MD to pull out at 2cm to stay at 55cm and repeat CXR for confirmation.
--- NOTE | 2025-02-26 03:17 | XR_ITS ---
EXAMINATION: AP chest single view TECHNIQUE: AP portable upright chest single view Date and time: February 26, 2025, 0352 hours, comparison February 26, 2025 INDICATIONS: Reposition orogastric tube FINDINGS: Orogastric tube tip body the stomach satisfactory position No interval pneumonia or pulmonary edema IMPRESSION: Orogastric tube satisfactory position
[2025-02-26 03:26] LABS: INR 1.0 (0.9-1.3); Prothrombin Time 10.9 Seconds (9.0-12.2)
[2025-02-26 03:43] LABS: Alanine Aminotransferase 10 U/L (10-49); Albumin, Serum 3.9 gm/dL (3.5-5.0); Albumin/Globulin Ratio 1.9 (1.2-2.2); Alkaline Phosphatase 61 U/L (46-116); Anion Gap 9 (7-16); Aspartate Amino Transferase 17 U/L (0-34); BUN/Creatinine Ratio 6 Ratio (12-20); Bilirubin,Total 0.4 mg/dL (0.3-1.2); Blood Urea Nitrogen < 5 mg/dL (9-23); Calcium 8.8 mg/dL (8.3-10.6); Calcium (Corrected) 8.9 mg/dL (8.5-10.1); Carbon Dioxide 28.9 mMol/L (20.0-31.0); Cardiac Risk Estimate 3.0 RATIO (3.7-5.6); Chloride 104 mMol/L (98-107); Cholesterol 157 mg/dL (132-200); Creatinine (Component) 0.8 mg/dL (0.6-1.3); Estimated Creatinine Clearance 67.1 mL/min (>60); Globulin 2.1 gm/dL (2.3-3.5); Glucose 99 mg/dL (74-106); HDL Cholesterol 52 mg/dL (40-60); LDL Cholesterol,Calculated 93 mg/dL (0-130); Magnesium 2.1 mg/dL (1.6-2.6); Osmolality,Calculated 280 (275-295); Phosphorous 4.9 mg/dL (2.4-5.1); Potassium 3.8 mMol/L (3.4-5.1); Sodium 142 mMol/L (136-145); Thyroid Stimulating Hormone 0.88 uIU/mL (0.55-4.78); Total Protein 6.0 gm/dL (5.7-8.2); Triglycerides 59 mg/dL (30-150); eGFR > 60 See Note
--- NOTE | 2025-02-26 09:15 | ESPR_ITS ---
<Statement entered by Norberto Sanchez MD - 02/26/25 18:55> I have discussed and was present for the essential components of the history, physical examination, diagnosis, and treatment plan with the resident. I agree with the patient's care as documented by the resident and amended herein by me. Norberto Sanchez MD FACP. Documentation for date of: 02/26/25 Subjective Subjective Interval history: Labs reviewed and patient examined at the bedside. GI consulted. Possible endoscopy tomorrow. On NPO diet. On IV pantoprazole 40 mg milligrams twice daily. NG tube placed and NG drainage container shows yellow gastric contents. Currently on LR IVF 100ml/hr This morning patient complains of mild headache. Mild abdominal pain. Denies chest pain, palpation, SOB, N/V, fevers or chills. Exam Vital Signs Temp Pulse Resp BP Pulse Ox O2 Del Method 97.6 F 81 16 113/68 92 L Room Air 02/26/25 07:40 02/26/25 07:40 02/26/25 07:40 02/26/25 07:40 02/26/25 07:40 02/26/25 07:40 Narrative Exam General: No acute distress, well nourished, AAO x3 Eye: PERRL, EOMI, normal conjunctiva, no scleral icterus HENT: Normocephalic, atraumatic, hearing intact to conversation at normal volume, moist oral mucosa Neck: Supple, non-tender, no JVD, no lymphadenopathy Lungs: Non-labored respirations, symmetric chest rise, Clear to auscultate bilaterally, No wheezing, rhonchi, crackles Heart: Peripheral pulses intact bilaterally, Regular Rate and Rhythm. Abdomen: Soft, non-tender, non-distended, no palpable masses Musculoskeletal: Normal range of motion and strength, No cyanosis or edema, No visible joint swelling Skin: Skin is warm, dry, no rashes or lesions. Psychiatric: Cooperative, appropriate mood and affect, Awake and alert, not agitated Neuro: Cranial nerves II-XII grossly intact. Strength 5/5 throughout. Sensations intact to light touch. Objective Labs 02/26/25 02:33 02/26/25 02:33 Labs: Laboratory Results - last 24 hr 02/25/25 02/25/25 02/25/25 16:27 17:04 18:20 WBC 7.0 RBC 5.02 Hgb 14.5 Hct 41.0 MCV 82 MCH 28.9 MCHC 35.4 RDW Std Deviation 38.0 Plt Count 295 Neut % (Auto) 49 Lymph % (Auto) 40 [place] % (Auto) 8 Eos % (Auto) 2 Baso % (Auto) 1 Neut # (Auto) 3.4 Lymph # (Auto) 2.8 [place] # (Auto) 0.6 Eos # (Auto) 0.1 Baso # (Auto) 0.1 Immature Gran # (Auto) 0.02 H Absolute Nucleated RBC 0.00 Immature Gran % 0 Nucleated RBC % 0 PT 10.9 INR 1.0 Sodium 141 Potassium 3.4 Chloride 102 Carbon Dioxide 26.0 Anion Gap 13 BUN 5 L Creatinine 0.9 Estim Creat Clear Calc 70.9 eGFR > 60 BUN/Creatinine Ratio 6 L Glucose 102 Calculated Osmolality 278 Lactic Acid Calcium 9.9 Corrected Calcium 9.9 Phosphorus Magnesium Total Bilirubin 0.4 AST 17 ALT 12 Alkaline Phosphatase 67 Total Protein 6.8 Albumin 4.4 Globulin 2.4 Albumin/Globulin Ratio 1.8 Triglycerides Cholesterol LDL Cholesterol, Calc HDL Cholesterol Cholesterol/HDL Ratio Lipase 32 TSH HCG, Qual Positive Beta HCG, Quant 7 Ur Collection Type Urine Color Urine Clarity Urine pH Ur Specific [place] Urine Protein Urine Glucose (UA) Urine Ketones Urine Blood Urine Nitrite Urine Bilirubin Urine Urobilinogen (Auto) Ur Leukocyte Esterase Urine RBC Urine WBC Ur Squamous Epith Cells Urine Bacteria Urine Opiates Screen Urine Fentanyl Screen Ur Barbiturates Screen U Amphetamin/Meth Scrn U Benzodiazepines Scrn U Cocaine Metab Screen U Marijuana (THC) Screen Blood Type O Positive Antibody Screen NEGATIVE Blood Bank Wristband ID Yes 02/25/25 02/26/25 18:32 02:33 WBC 8.3 RBC 4.83 Hgb 13.7 Hct 40.3 MCV 83 MCH 28.4 MCHC 34.0 RDW Std Deviation 39.5 Plt Count 234 D Neut % (Auto) 70 Lymph % (Auto) 23 [place] % (Auto) 7 Eos % (Auto) 1 Baso % (Auto) 0 Neut # (Auto) 5.8 Lymph # (Auto) 1.9 [place] # (Auto) 0.6 Eos # (Auto) 0.0 Baso # (Auto) 0.0 Immature Gran # (Auto) 0.01 H Absolute Nucleated RBC 0.00 Immature Gran % 0 Nucleated RBC % 0 PT 10.9 INR 1.0 Sodium 142 Potassium 3.8 Chloride 104 Carbon Dioxide 28.9 Anion Gap 9 BUN < 5 L Creatinine 0.8 Estim Creat Clear Calc 67.1 eGFR > 60 BUN/Creatinine Ratio 6 L Glucose 99 Calculated Osmolality 280 Lactic Acid 0.4 Calcium 8.8 Corrected Calcium 8.9 Phosphorus 4.9 Magnesium 2.1 Total Bilirubin 0.4 AST 17 ALT 10 Alkaline Phosphatase 61 Total Protein 6.0 Albumin 3.9 D Globulin 2.1 L Albumin/Globulin Ratio 1.9 Triglycerides 59 Cholesterol 157 LDL Cholesterol, Calc 93 HDL Cholesterol 52 Cholesterol/HDL Ratio 3.0 L Lipase TSH 0.88 HCG, Qual Beta HCG, Quant Ur Collection Type Clean Catch Urine Color Lt-Yellow Urine Clarity Clear Urine pH 8.0 H Ur Specific [place] 1.006 Urine Protein Negative Urine Glucose (UA) Negative Urine Ketones Negative Urine Blood Negative Urine Nitrite Negative Urine Bilirubin Negative Urine Urobilinogen (Auto) Negative Ur Leukocyte Esterase Negative Urine RBC 0 Urine WBC 1 Ur Squamous Epith Cells 0 Urine Bacteria None Urine Opiates Screen Negative Urine Fentanyl Screen Negative Ur Barbiturates Screen Negative U Amphetamin/Meth Scrn Negative U Benzodiazepines Scrn Negative U Cocaine Metab Screen Negative U Marijuana (THC) Screen Negative Blood Type Antibody Screen Blood Bank Wristband ID Quality Measures Quality Measures none Assessment & Plan Assessment Current Active Medications: Generic Name Dose Route Start Last Admin Trade Name Renard PRN Reason Stop Dose Admin Acetaminophen 650 mg 02/25/25 22:53 Acetaminophen 325 Mg Tablet PO 03/27/25 22:52 Q6H PRN Fever >100.4 Acetaminophen 650 mg 02/25/25 22:59 Acetaminophen 325 Mg Tablet PO 03/27/25 22:58 Q6H PRN PAIN SCALE 1-3 (mild Hydromorphone HCl 1 mg 02/25/25 23:12 02/26/25 01:22 Hydromorphone Inj 2 Mg/Ml Vial IVP 03/02/25 23:11 1 mg Q4HR PRN Administration PAIN SCALE 4-10(Mod-Sev Lactated Ringer's 1,000 mls @ 100 mls/hr 02/25/25 23:18 02/26/25 01:09 Lactated Ringers IV 02/26/25 19:17 100 mls/hr .Q10H JAI Administration Ondansetron HCl 4 mg 02/25/25 22:53 Ondansetron Inj 2 Mg/Ml Inj 2 Ml IVP 03/27/25 22:52 Q6H PRN NAUSEA OR VOMITING Protocol Pantoprazole Sodium 40 mg 02/26/25 09:00 Pantoprazole Inj 40 Mg Vial IVP 03/28/25 08:59 BID JAI Plan This is a 39 years old female with past medical history of duodenal ulcers, gastric ulcers cholecystectomy ,appendectomy, bilateral oophorectomy with hysterectomy, multinodular goiter, asthma, RICK, GERD, IBS presented to the ED with complaints of abdominal pain and melena. She was admitted for possible GI bleed. #? Upper GI bleed History of duodenal ulcer, gastric ulcers Melena, abdominal pain Loading dose of Protonix was given ?Gastroenterology consulted. ?Starting n.p.o.. ?Possible endoscopy today -Iv Pantap 40mg BID ordered. # Abdominal pain 2/2 ileus vs enteritis vs delayed gastric emptying Umbilical abdominal pain 10 out of [address] abdomen showing fluid distended small bowel loops. Ondansetron given. IV morphine given in ED. -Currently on LR IVF 100ml/hr -NG Tube placed, to be placed on LIS -Starting on Dilaudid. # Asthma. Takes levalbuterol and Adavir diskus. # GERD Takes omeprazole 40 mg # Anxiety Takes Lexapro 20 mg and Wellbutrin. Code status: Full DVT prophylaxis:SCD GI prophylaxis: Zofran Diet: NPO [place]: None Lines: PIV Supplemental O2: none Disposition: Med Tele Assessment and plan discussed with my attending physician Dr. Daniel Weller (PGY-1) - Internal medicine resident
--- NOTE | 2025-02-26 12:25 | PC.SS ---
Patient is a 39 year old female presenting to the hospital for abdominal pain. WEBBING WEAVER made face to face contact with patient, at bedside was patient?s daughter. Patient gave consent for guest to remain in the room. Patient confirmed demographic information. Patient stated that in case she is unable to make medical decisions on her own she would like her sister August [phone] to make them. 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 Lira last appointment in November 2024, pharmacy of choice [facility]. Patient stated that once medically clear she would like to return home and her family will provide transportation. d/c: home PCP: Dr. Lira Decision maker: August [phone]
--- NOTE | 2025-02-26 17:01 | ESCONSULT_ITS ---
HPI Data of Consult Requesting Physician: Alejandrina Hernandez DO Admitting Provider: Alejandrina Hernandez DO Attending Provider: Alejandrina Hernandez DO Primary Care Provider: Estrellita Marshall MD Consult Narrative Reason for consult: abdominal pain and melena History of present illness: Ms Quiroga is a 39 year old woman with hx of GERD, duodenal ulcers, RICK, ?IBS and reported celiac disease, who had 60 lbs weight loss on tirzepatide (last injection was 2 months ago) and hx of multiple abdominal surgeries who presented with abdominal pain that radiated to her back, and melena, and 5x billious non bloody emesis. ROS: endorses abdominal pain, melena, nausea, vomiting, night sweats (surgical induced early menopause), migraines, denies chills, dizziness, She has underwent egd in [address] [facility]. Surgical hx: rhinoplasty, cholecystectomy, appendectomy, hyserectomy, bilateral salpingo oophrectomy, Labs notable for lipase wnl, hgb stable 13, wbc 8.3, AST and ALT wnl, triglicerides 59, cholesterol 157, UA bland, Utox negative CTAP: Fluid distended small bowel loops, consider ileus, enteritis such as Crohn disease CXR, with NG tube in appropriate postion. Tx: on protonx BID, NPO, NG tube on LIS, cc:: cc: Alejandrina Hernandez DO Exam Vital Signs Temp Pulse Resp BP Pulse Ox O2 Del Method 97.8 F 77 20 111/66 94 L Room Air 02/26/25 12:06 02/26/25 12:06 02/26/25 12:06 02/26/25 12:06 02/26/25 12:06 02/26/25 12:06 Narrative Exam GENERAL: no acute distress, AAO x3, comfortably laying in bed, anxious appearing HEENT: Head AT/ NC. Mucous membranes dry. PERRL. NG tube in place onsuction NECK: Supple, no lymphadenopathy, no carotid bruits. CARDIOVASCULAR: RRR. Normal S1/S2, No m/r/g. No pitting edema of bilateral LEs. RESPIRATORY: CTAB. No wheezing, rhonchi, crackles. GASTROINTESTINAL: Abdomen soft, mildly tender to palapation of epigastrum no palpable masses. Bowel sounds present MUSCULOSKELETAL:? No cyanosis or edema, no visible joint swelling. NEUROLOGICAL: CN II-XII grossly intact. No focal deficits. Sensation intact, symmetric. PSYCHIATRIC: Awake and alert, not agitated, normal mood and affect. SKIN: No obvious rashes, no jaundice, normal turgor. Results Labs 02/28/25 05:18 02/28/25 05:18 Labs: Short CBC 02/25/25 02/26/25 Range/Units 16:27 02:33 WBC 7.0 8.3 (3.6-11.0) Thou/mm3 Hgb 14.5 13.7 (12.0-16.0) g/dL Hct 41.0 40.3 (36.0-46.0) % Plt Count 295 234 D (140-440) Thou/mm3 BMP 02/25/25 02/26/25 16:27 02:33 Sodium 141 142 Potassium 3.4 3.8 Chloride 102 104 Carbon Dioxide 26.0 28.9 BUN 5 L < 5 L Creatinine 0.9 0.8 Glucose 102 99 Calcium 9.9 8.8 Liver Function 02/25/25 02/26/25 Range/Units 16:27 02:33 Total Bilirubin 0.4 0.4 (0.3-1.2) mg/dL AST 17 17 (0-34) U/L ALT 12 10 (10-49) U/L Alkaline Phosphatase 67 61 (46-116) U/L Albumin 4.4 3.9 D (3.5-5.0) gm/dL Urine 02/25/25 Range/Units 18:32 Urine Color Lt-Yellow (Lt Yel-Yel) Urine Clarity Clear (Clear/Hazy) Urine pH 8.0 H (5.0-7.0) Ur Specific [place] 1.006 (1.001-1.035) Urine Protein Negative (Neg - Trace) Urine Glucose (UA) Negative (Negative) Quality Measures Quality Measures VTE prophylaxis Medications Home Medications and Allergies Home Medications ?Medication ?Instructions ?Recorded ?Confirmed ?Type escitalopram oxalate 20 mg tablet 20 mg PO HS 06/21/18 02/26/25 History (Lexapro) bupropion HCl 100 mg tablet 100 mg PO BID 02/26/2505/11 History omeprazole 40 mg capsule,delayed 40 mg PO QAM 02/26/25 02/26/25 History release Allergies Allergy/AdvReac Type Severity Reaction Status Date / Time ciprofloxacin Allergy Unknown Verified 02/25/25 15:15 doxycycline Allergy Unknown Verified 02/25/25 15:15 gluten Allergy Abdominal Verified 02/25/25 15:15 Pain Visit Medications Acetaminophen (Acetaminophen 325 Mg Tablet) 650 mg PO Q6H PRN PRN Reason: Fever >100.4 Stop: 03/27/25 22:52 Acetaminophen (Acetaminophen 325 Mg Tablet) 650 mg PO Q6H PRN PRN Reason: PAIN SCALE 1-3 (mild Stop: 03/27/25 22:58 Hydromorphone HCl (Hydromorphone Inj 2 Mg/Ml Vial) 1 mg IVP Q4HR PRN PRN Reason: PAIN SCALE 4-10(Mod-Sev Stop: 03/02/25 23:11 Last Admin: 02/26/25 14:49 Dose: 1 mg Lactated Ringer's (Lactated Ringers) 1,000 mls @ 100 mls/hr IV .Q10H JAI Stop: 02/26/25 19:17 Last Admin: 02/26/25 11:30 Dose: 100 mls/hr Ondansetron HCl (Ondansetron Inj 2 Mg/Ml Inj 2 Ml) 4 mg IVP Q6H PRN; Protocol PRN Reason: NAUSEA OR VOMITING Stop: 03/27/25 22:52 Pantoprazole Sodium (Pantoprazole Inj 40 Mg Vial) 40 mg IVP BID JAI Stop: 03/28/25 08:59 Last Admin: 02/26/25 09:24 Dose: 40 mg Discontinued Medications Hydrocodone Bitart/Acetaminophen (Hydrocodone/Apap 5/325 Tablet) 1 tab PO X1 ONE Stop: 02/25/25 16:10 Last Admin: 02/25/25 16:44 Dose: 1 tab Alprazolam (Alprazolam 0.25 Mg Tablet) 1 mg PO X1 ONE Stop: 02/25/25 18:25 Last Admin: 02/25/25 18:36 Dose: 1 mg Diphenhydramine HCl (Diphenhydramine Inj 50 Mg/Ml Vial) 12.5 mg IVP X1 ONE Stop: 02/25/25 21:27 Last Admin: 02/25/25 21:55 Dose: 12.5 mg Fentanyl Citrate (Fentanyl Cit Inj 50 Mcg/Ml Amp 2ml) 75 mcg IVP X1 ONE Stop: 02/25/25 18:17 Last Admin: 02/25/25 18:31 Dose: 75 mcg Morphine Sulfate (Morphine Sulf Inj 4 Mg/Ml Vial) 4 mg IVP X1 ONE Stop: 02/25/25 19:34 Last Admin: 02/25/25 19:42 Dose: 4 mg Morphine Sulfate (Morphine Sulf Inj 4 Mg/Ml Vial) 4 mg IVP X1 ONE Stop: 02/25/25 21:28 Last Admin: 02/25/25 21:55 Dose: 4 mg Morphine Sulfate (Morphine Sulf Inj 4 Mg/Ml Vial) 4 mg IVP Q4HR PRN PRN Reason: abdominal pain Stop: 03/02/25 22:58 Ondansetron HCl (Ondansetron Odt 4 Mg Tabrap) 4 mg PO X1 ONE; Protocol Stop: 02/25/25 18:25 Last Admin: 02/25/25 18:36 Dose: 4 mg Ondansetron HCl (Ondansetron Inj 2 Mg/Ml Inj 2 Ml) 4 mg IVP X1 ONE; Protocol Stop: 02/25/25 21:27 Last Admin: 02/25/25 21:55 Dose: 4 mg Pantoprazole Sodium (Pantoprazole Inj 40 Mg Vial) 80 mg IVP X1 ONE Stop: 02/25/25 21:41 Last Admin: 02/25/25 21:56 Dose: 80 mg Assessment & Plan Plan Ms. Quiroga is a 39 year old woman with hx of GERD, duodenal and gastric ulcers, abdominal surgeries (appendectomy, cholecystectomy, oophrectomy, hysterectomy), RICK who had 60 lbs weight loss on tirzepitide with last injection 2 months ago who presented with abdominal pain, melena, nausea and vomiting. NG tube in place with bileous stomach content. #intractble nausea and vomiting 2/2 pyloric stenosis vs gastroparesis #?Upper GI bleed pt endorses tirzepatide use which may have contributed to delayed gastric emptying and gastroparesis which may explain her intractable nausea and vomiting. She denies any NSAID use. She has noted to have dark tarry stools, which raises suspicion for possible upper gi bleed. she has reported history of gastric and duodenal ulcers. CTAP with Fluid distended small bowel loops, consider ileus, enteritis such as Crohn disease Plan: NPO EGD continue NG tube on LIS continue Protonix 40 BID continue zofran PRN Plan discussed with Dr. Jax Valentino MD PGY1 Attending Provider Attestation/Addendum 39 years old female evaluated by me for your hearing Laboratory data and imaging studies reviewed Case discussed in detail Plan is to have the NGT suction continue Get consent for fiberoptic esophagogastroduodenoscopy with possible biopsy possible therapeutic intervention under intravenous moderate sedation tentatively scheduled for tomorrow Thank you very much for the opportunity to participate in the care of this patient
[2025-02-27] VITALS (14 sets, daily range): BP systolic 107–150; BP diastolic 57–103; PULSE 60–94; RESP 12–23; TEMP 36.1–37; O2SAT 18–99; BMI 23.3
[2025-02-27 05:42] LABS: Basophils # (Auto) 0.0 Thou/mm3 (0.0-0.2); Basophils % (Auto) 0 % (0-2.5); Eosinophils # (Auto) 0.0 Thou/mm3 (0.0-0.5); Eosinophils % (Auto) 0 % (0-10); Hematocrit 36.7 % (36.0-46.0); Hemoglobin 12.5 g/dL (12.0-16.0); Immature Granulocytes Auto 0.02 Thou/mm3 (0.00-0.00); Lymphocytes # (Auto) 1.9 Thou/mm3 (1.0-4.8); Lymphocytes % (Auto) 21 % (10-50); Mean Corpuscular HGB Conc 34.1 g/dl (31.0-37.0); Mean Corpuscular Hemoglobin 28.5 pg (25.0-35.0); Mean Corpuscular Volume 84 fL (80-100); Monocytes # (Auto) 0.6 Thou/mm3 (0.0-0.8); Monocytes % (Auto) 6 % (0-12); Neutrophils # (Auto) 6.9 Thou/mm3 (1.8-7.7); Neutrophils % (Auto) 73 % (37-80); Nucleated Red Blood Cell # 0.00 Thou/mm3 (0.00-0.00); Nucleated Red Blood Cell % 0 /100 WBC (0); Platelet Count 217 Thou/mm3 (140-440); RDW Standard Deviation 39.0 fL (36.4-46.3); Red Blood Count 4.39 Miln/mm3 (4.00-5.20); White Blood Count 9.5 Thou/mm3 (3.6-11.0)
[2025-02-27 06:06] LABS: Alanine Aminotransferase 10 U/L (10-49); Albumin, Serum 3.6 gm/dL (3.5-5.0); Albumin/Globulin Ratio 1.7 (1.2-2.2); Alkaline Phosphatase 64 U/L (46-116); Anion Gap 12 (7-16); Aspartate Amino Transferase 13 U/L (0-34); BUN/Creatinine Ratio 7 Ratio (12-20); Bilirubin,Total 0.5 mg/dL (0.3-1.2); Blood Urea Nitrogen < 5 mg/dL (9-23); Calcium 8.9 mg/dL (8.3-10.6); Calcium (Corrected) 9.2 mg/dL (8.5-10.1); Carbon Dioxide 26.9 mMol/L (20.0-31.0); Chloride 101 mMol/L (98-107); Creatinine (Component) 0.7 mg/dL (0.6-1.3); Estimated Creatinine Clearance 76.7 mL/min (>60); Globulin 2.1 gm/dL (2.3-3.5); Glucose 64 mg/dL (74-106); Osmolality,Calculated 274 (275-295); Potassium 3.4 mMol/L (3.4-5.1); Sodium 140 mMol/L (136-145); Total Protein 5.7 gm/dL (5.7-8.2); eGFR > 60 See Note
--- NOTE | 2025-02-27 07:57 | PC.NURSE ---
notified that Blood glucose was checked and is 64m this am. Per ok to give juice, if glucose does not come up above 70 give 1 amp D50 per Mariluz
[2025-02-27] MEDS: RINGERS LACTATED 1000 ML 1,000 ML 100 ML IV (08:24)
[2025-02-27] MEDS: HYDROmorphone INJ 2 MG/ML VIAL 1 MG IVP (08:53)
--- NOTE | 2025-02-27 08:58 | PC.NURSE ---
recheck Blood glucose 102
--- NOTE | 2025-02-27 09:30 | PC.SS ---
Update: Pending Endoscopy. Patient will discharge home when medically cleared.
--- NOTE | 2025-02-27 11:57 | PD.RESPRO ---
Documentation for date of: 02/27/25 Subjective Subjective Interval history: No Overnight events. Labs reviewed and patient examined at the bedside. Patient currently pending EGD today. On LR IVF 100 mL/h. On IV pantoprazole 40 mg twice daily. NG tube draining container has yellow gastric contents. No signs of blood. Restarted her home medication escitalopram 20 mg p.o. at bedtime and bupropion 100 mg p.o. twice daily. Patient's Hgb is stable with 12.5 and Hct 36.7. Denies chest pain, palpation, SOB, abdominal pain, N/V, fevers or chills. Will continue to monitor. Exam Vital Signs Temp Pulse Resp BP Pulse Ox O2 Del Method 97.4 F 81 15 128/84 96 Room Air 02/27/25 08:00 02/27/25 08:00 02/27/25 08:00 02/27/25 08:00 02/27/25 08:00 02/27/25 08:00 Narrative Exam General: No acute distress, well nourished, AAO x3 Eye: PERRL, EOMI, normal conjunctiva, no scleral icterus HENT: Normocephalic, atraumatic, hearing intact to conversation at normal volume, moist oral mucosa Neck: Supple, non-tender, no JVD, no lymphadenopathy Lungs: Non-labored respirations, symmetric chest rise, Clear to auscultate bilaterally, No wheezing, rhonchi, crackles Heart: Peripheral pulses intact bilaterally, Regular Rate and Rhythm. Abdomen: Soft, non-tender, non-distended, no palpable masses Musculoskeletal: Normal range of motion and strength, No cyanosis or edema, No visible joint swelling Skin: Skin is warm, dry, no rashes or lesions. Psychiatric: Cooperative, appropriate mood and affect, Awake and alert, not agitated Neuro: Cranial nerves II-XII grossly intact. Strength 5/5 throughout. Sensations intact to light touch. Objective Labs 02/28/25 05:18 02/28/25 05:18 Labs: Laboratory Results - last 24 hr 02/27/25 04:49 WBC 9.5 RBC 4.39 Hgb 12.5 Hct 36.7 MCV 84 MCH 28.5 MCHC 34.1 RDW Std Deviation 39.0 Plt Count 217 Neut % (Auto) 73 Lymph % (Auto) 21 [place] % (Auto) 6 Eos % (Auto) 0 Baso % (Auto) 0 Neut # (Auto) 6.9 Lymph # (Auto) 1.9 [place] # (Auto) 0.6 Eos # (Auto) 0.0 Baso # (Auto) 0.0 Immature Gran # (Auto) 0.02 H Absolute Nucleated RBC 0.00 Immature Gran % 0 Nucleated RBC % 0 Sodium 140 Potassium 3.4 Chloride 101 Carbon Dioxide 26.9 Anion Gap 12 BUN < 5 L Creatinine 0.7 Estim Creat Clear Calc 76.7 eGFR > 60 BUN/Creatinine Ratio 7 L Glucose 64 L Calculated Osmolality 274 L Calcium 8.9 Corrected Calcium 9.2 Total Bilirubin 0.5 AST 13 ALT 10 Alkaline Phosphatase 64 Total Protein 5.7 Albumin 3.6 Globulin 2.1 L Albumin/Globulin Ratio 1.7 Quality Measures Quality Measures VTE prophylaxis Assessment & Plan Assessment Current Active Medications: Generic Name Dose Route Start Last Admin Trade Name Freq PRN Reason Stop Dose Admin Acetaminophen 650 mg 02/25/25 22:53 Acetaminophen 325 Mg Tablet PO 03/27/25 22:52 Q6H PRN Fever >100.4 Acetaminophen 650 mg 02/25/25 22:59 Acetaminophen 325 Mg Tablet PO 03/27/25 22:58 Q6H PRN PAIN SCALE 1-3 (mild Hydromorphone HCl 1 mg 02/25/25 23:12 02/27/25 08:53 Hydromorphone Inj 2 Mg/Ml Vial IVP 03/02/25 23:11 1 mg Q4HR PRN Administration PAIN SCALE 4-10(Mod-Sev Lactated Ringer's 1,000 mls @ 100 mls/hr 02/26/25 21:56 02/27/25 08:24 Lactated Ringers IV 03/28/25 21:55 100 mls/hr .Q10H JAI Administration Ondansetron HCl 4 mg 02/25/25 22:53 Ondansetron Inj 2 Mg/Ml Inj 2 Ml IVP 03/27/25 22:52 Q6H PRN NAUSEA OR VOMITING Protocol Pantoprazole Sodium 40 mg 02/26/25 09:00 02/27/25 08:23 Pantoprazole Inj 40 Mg Vial IVP 03/28/25 08:59 40 mg BID JAI Administration Plan This is a 39 years old female with past medical history of duodenal ulcers, gastric ulcers cholecystectomy ,appendectomy, bilateral oophorectomy with hysterectomy, multinodular goiter, asthma, RICK, GERD, IBS presented to the ED with complaints of abdominal pain and melena. She was admitted for possible GI bleed. # Upper GI bleed R/O -History of duodenal ulcer, gastric ulcers -Episodes of Melena, abdominal pain -Patient's Hgb is stable with 12.5 and Hct 36.7. Plan: -Patient currently pending EGD today. -On LR IVF 100 mL/h. -Gastroenterology consulted. ?Starting n.p.o. -IV pantoprazole 40 mg twice daily. # Abdominal pain 2/2 ileus vs enteritis vs delayed gastric emptying -Umbilical abdominal pain 10 out of 10 on pain scale. -CT abdomen showing fluid distended small bowel loops. -Ondansetron given. -IV morphine given in ED. Plan: -Currently on LR IVF 100ml/hr -NG Tube placed, to be placed on LIS -Starting on Dilaudid. # Asthma. Takes levalbuterol and Adavir diskus. # GERD -Currently on IV pantoprazole 40 mg twice daily. # Anxiety -Restarted her home medication escitalopram 20 mg p.o. at bedtime and bupropion 100 mg p.o. twice daily. Code status: Full DVT prophylaxis:SCD GI prophylaxis: Zofran Diet: NPO [place]: None Lines: PIV Supplemental O2: none Disposition: Med Surg Assessment and plan discussed with my attending physician Dr. Elian Weller (PGY-1) - Internal medicine resident Attending Provider Attestation/Addendum I reviewed labs, imaging, EKG, home medications and prior available records. Face to face evaluation was performed by me. I have personally examined the patient and discussed assessment and plan with the IM team. I reviewed the resident note and agree with the plan with exceptions as below. Abdominal pain Melena Asthma without exacerbation GERD Anxiety Continue PPI IV Consulted GI Plan for EGD on 02/27
[2025-02-27] MEDS: DEXTROSE 5%-LACTATED RINGERS 1,000 ML 100 ML IV (15:57)
[2025-02-27] MEDS: SUCRALFATE SUSP 1 GM/10 ML UDC PO (20:30)
[2025-02-27] MEDS: ESCITALOPRAM OXALATE 10 MG TABLET 20 MG PO (20:30)
[2025-02-27] MEDS: MG HYD/AL HYD/SIME (Maalox Reg) SUSP 30 ML UDC 15 ML PO (20:30)
[2025-02-28] VITALS: BP 99/61; PULSE 75; PULSE 87; RESP 19; TEMP 36.2; O2SAT 98
[2025-02-28 04:00] VITALS: BP 118/73; PULSE 79; PULSE 83; RESP 19; TEMP 36.7; O2SAT 98
[2025-02-28] MEDS: MG HYD/AL HYD/SIME (Maalox Reg) SUSP 30 ML UDC 15 ML PO ×5 (05:22→21:04)
[2025-02-28] MEDS: SUCRALFATE SUSP 1 GM/10 ML UDC PO ×3 (05:22→18:12)
[2025-02-28 05:31] LABS: Basophils # (Auto) 0.0 Thou/mm3 (0.0-0.2); Basophils % (Auto) 0 % (0-2.5); Eosinophils # (Auto) 0.1 Thou/mm3 (0.0-0.5); Eosinophils % (Auto) 1 % (0-10); Hematocrit 35.4 % (36.0-46.0); Hemoglobin 12.1 g/dL (12.0-16.0); Immature Granulocytes Auto 0.02 Thou/mm3 (0.00-0.00); Lymphocytes # (Auto) 2.1 Thou/mm3 (1.0-4.8); Lymphocytes % (Auto) 27 % (10-50); Mean Corpuscular HGB Conc 34.2 g/dl (31.0-37.0); Mean Corpuscular Hemoglobin 28.3 pg (25.0-35.0); Mean Corpuscular Volume 83 fL (80-100); Monocytes # (Auto) 0.6 Thou/mm3 (0.0-0.8); Monocytes % (Auto) 8 % (0-12); Neutrophils # (Auto) 4.8 Thou/mm3 (1.8-7.7); Neutrophils % (Auto) 63 % (37-80); Nucleated Red Blood Cell # 0.00 Thou/mm3 (0.00-0.00); Nucleated Red Blood Cell % 0 /100 WBC (0); Platelet Count 201 Thou/mm3 (140-440); RDW Standard Deviation 38.3 fL (36.4-46.3); Red Blood Count 4.28 Miln/mm3 (4.00-5.20); White Blood Count 7.6 Thou/mm3 (3.6-11.0)
[2025-02-28 06:08] LABS: Alanine Aminotransferase 8 U/L (10-49); Albumin, Serum 3.6 gm/dL (3.5-5.0); Albumin/Globulin Ratio 1.7 (1.2-2.2); Alkaline Phosphatase 60 U/L (46-116); Anion Gap 13 (7-16); Aspartate Amino Transferase 17 U/L (0-34); BUN/Creatinine Ratio 7 Ratio (12-20); Bilirubin,Total 0.5 mg/dL (0.3-1.2); Blood Urea Nitrogen < 5 mg/dL (9-23); Calcium 8.8 mg/dL (8.3-10.6); Calcium (Corrected) 9.1 mg/dL (8.5-10.1); Carbon Dioxide 28.0 mMol/L (20.0-31.0); Chloride 100 mMol/L (98-107); Creatinine (Component) 0.7 mg/dL (0.6-1.3); Estimated Creatinine Clearance 80.1 mL/min (>60); Globulin 2.1 gm/dL (2.3-3.5); Glucose 72 mg/dL (74-106); Magnesium 1.8 mg/dL (1.6-2.6); Osmolality,Calculated 277 (275-295); Phosphorous 3.3 mg/dL (2.4-5.1); Potassium 3.3 mMol/L (3.4-5.1); Sodium 141 mMol/L (136-145); Total Protein 5.7 gm/dL (5.7-8.2); eGFR > 60 See Note
[2025-02-28 08:00] VITALS: BP 111/78; PULSE 82; PULSE 85; RESP 19; TEMP 36.6; O2SAT 94
[2025-02-28 12:00] VITALS: BP 106/72; PULSE 72; PULSE 74; RESP 21; TEMP 36.6; O2SAT 97
--- NOTE | 2025-02-28 14:08 | ESPR_ITS ---
Documentation for date of: 02/28/25 Subjective Subjective Interval history: No Overnight events. Labs reviewed and patient examined at the bedside. Patient received EGD yesterday on 02/27/2025. It showed large Dunia Dela Cruz tear at the GE junction, which has been coagulated by heater probe. It also showed esophagitis and gastritis. Biopsies were taken. NG tube has been discontinued. Patient has been given Carafate suspension 1 g 4 times daily and Maalox 15 mL p.o. every 4 hours. Patient will advance diet as tolerated. Will observe the patient for 1 more day. If she is stable by tomorrow, she will get discharged. Currently patient does not have any outstanding symptoms to report, other than generalized body weakness. Denies chest pain, palpation, SOB, abdominal pain, N/V, fevers or chills. Exam Vital Signs Temp Pulse Resp BP Pulse Ox O2 Del Method O2 Flow Rate 97.9 F 72 21 H 106/72 97 Room Air 3 02/28/25 12:00 02/28/25 12:00 02/28/25 12:00 02/28/25 12:00 02/28/25 12:00 02/28/25 12:00 02/28/25 12:00 Narrative Exam General: No acute distress, well nourished, AAO x3 Eye: PERRL, EOMI, normal conjunctiva, no scleral icterus HENT: Normocephalic, atraumatic, hearing intact to conversation at normal volume, moist oral mucosa Neck: Supple, non-tender, no JVD, no lymphadenopathy Lungs: Non-labored respirations, symmetric chest rise, Clear to auscultate bilaterally, No wheezing, rhonchi, crackles Heart: Peripheral pulses intact bilaterally, Regular Rate and Rhythm. Abdomen: Soft, non-tender, non-distended, no palpable masses Musculoskeletal: Normal range of motion and strength, No cyanosis or edema, No visible joint swelling Skin: Skin is warm, dry, no rashes or lesions. Psychiatric: Cooperative, appropriate mood and affect, Awake and alert, not agitated Neuro: Cranial nerves II-XII grossly intact. Strength 5/5 throughout. Sensations intact to light touch. Objective Labs 03/01/25 05:31 03/01/25 05:31 Labs: Laboratory Results - last 24 hr 02/28/25 05:18 WBC 7.6 RBC 4.28 Hgb 12.1 Hct 35.4 L MCV 83 MCH 28.3 MCHC 34.2 RDW Std Deviation 38.3 Plt Count 201 Neut % (Auto) 63 Lymph % (Auto) 27 [place] % (Auto) 8 Eos % (Auto) 1 Baso % (Auto) 0 Neut # (Auto) 4.8 Lymph # (Auto) 2.1 [place] # (Auto) 0.6 Eos # (Auto) 0.1 Baso # (Auto) 0.0 Immature Gran # (Auto) 0.02 H Absolute Nucleated RBC 0.00 Immature Gran % 0 Nucleated RBC % 0 Sodium 141 Potassium 3.3 L Chloride 100 Carbon Dioxide 28.0 Anion Gap 13 BUN < 5 L Creatinine 0.7 Estim Creat Clear Calc 80.1 eGFR > 60 BUN/Creatinine Ratio 7 L Glucose 72 L Calculated Osmolality 277 Calcium 8.8 Corrected Calcium 9.1 Phosphorus 3.3 Magnesium 1.8 Total Bilirubin 0.5 AST 17 ALT 8 L Alkaline Phosphatase 60 Total Protein 5.7 Albumin 3.6 Globulin 2.1 L Albumin/Globulin Ratio 1.7 Quality Measures Quality Measures VTE prophylaxis Assessment & Plan Assessment Current Active Medications: Generic Name Dose Route Start Last Admin Trade Name Freq PRN Reason Stop Dose Admin Acetaminophen 650 mg 02/25/25 22:53 Acetaminophen 325 Mg Tablet PO 03/27/25 22:52 Q6H PRN Fever >100.4 Acetaminophen 650 mg 02/25/25 22:59 Acetaminophen 325 Mg Tablet PO 03/27/25 22:58 Q6H PRN PAIN SCALE 1-3 (mild Al Hydrox/Mg Hydrox/Simethicone 15 ml 02/27/25 18:45 02/28/25 13:24 Mg Hyd/Al Hyd/Farooq (Maalox Reg) Susp 30 Ml Udc PO 03/29/25 18:44 15 ml Q4HR JAI Administration Bupropion HCl 100 mg 02/27/25 21:00 02/28/25 08:34 Bupropion Hcl 100 Mg Tablet PO 03/29/25 20:59 100 mg BID JAI Administration Escitalopram Oxalate 20 mg 02/27/25 21:00 02/27/25 20:30 Escitalopram Oxalate 10 Mg Tablet PO 03/29/25 20:59 20 mg HS JAI Administration Hydromorphone HCl 1 mg 02/25/25 23:12 02/27/25 08:53 Hydromorphone Inj 2 Mg/Ml Vial IVP 03/02/25 23:11 1 mg Q4HR PRN Administration PAIN SCALE 4-10(Mod-Sev Ondansetron HCl 4 mg 02/25/25 22:53 Ondansetron Inj 2 Mg/Ml Inj 2 Ml IVP 03/27/25 22:52 Q6H PRN NAUSEA OR VOMITING Protocol Pantoprazole Sodium 40 mg 02/26/25 09:00 02/28/25 08:33 Pantoprazole Inj 40 Mg Vial IVP 03/28/25 08:59 40 mg BID JAI Administration Sucralfate 1 gm 02/27/25 18:45 02/28/25 12:13 Sucralfate Susp 1 Gm/10 Ml Udc PO 03/29/25 18:44 1 gm Q6H JAI Administration Plan This is a 39 years old female with past medical history of duodenal ulcers, gastric ulcers cholecystectomy ,appendectomy, bilateral oophorectomy with hysterectomy, multinodular goiter, asthma, RICK, GERD, IBS presented to the ED with complaints of abdominal pain and melena. She was admitted for possible GI bleed. # Upper GI bleed R/O #Dunia Dela Cruz tear at GE junction -History of duodenal ulcer, gastric ulcers -Episodes of Melena, abdominal pain -Patient's Hgb is stable with 12.5 and Hct 36.7. -Patient received EGD yesterday on 02/27/2025. It showed large Dunia Dela Cruz tear at the GE junction, which has been coagulated by heater probe. It also showed esophagitis and gastritis. Biopsies were taken. NG tube has been discontinued. Plan: -Patient has been given Carafate suspension 1 g 4 times daily and Maalox 15 mL p.o. every 4 hours. -Gastroenterology consulted. -IV pantoprazole 40 mg twice daily. # Abdominal pain 2/2 ileus vs enteritis vs delayed gastric emptying -Umbilical abdominal pain 10 out of 10 on pain scale. -CT abdomen showing fluid distended small bowel loops. -Ondansetron given. -IV morphine given in ED. Plan: -Starting on Dilaudid. # Asthma. Takes levalbuterol and Adavir diskus. # GERD -Currently on IV pantoprazole 40 mg twice daily. # Anxiety -Restarted her home medication escitalopram 20 mg p.o. at bedtime and bupropion 100 mg p.o. twice daily. Code status: Full DVT prophylaxis:SCD GI prophylaxis: Zofran Diet: Full liquid diet [place]: None Lines: PIV Supplemental O2: none Disposition: Med Surg Assessment and plan discussed with my attending physician Dr. Elian Weller (PGY-1) - Internal medicine resident Attending Provider Attestation/Addendum I reviewed labs, imaging, EKG, home medications and prior available records. Face to face evaluation was performed by me. I have personally examined the patient and discussed assessment and plan with the IM team. I reviewed the resident note and agree with the plan with exceptions as below. Abdominal pain Melena Asthma without exacerbation GERD Anxiety Consulted GI Status post EGD that showed esophagitis/gastritis with Dunia-Dela Cruz tear Started clear liquid diet. Advance as tolerated Continue Maalox, Carafate, and PPI
[2025-02-28 16:00] VITALS: BP 142/90; PULSE 74; PULSE 78; RESP 16; TEMP 36.1; O2SAT 99
[2025-02-28 20:00] VITALS: BP 132/78; PULSE 111; PULSE 76; RESP 21; TEMP 37; O2SAT 99
--- NOTE | 2025-02-28 20:41 | PD.IMPROG ---
Documentation for date of: 02/28/25 Subjective Subjective Interval history: Large Dunia-Dela Cruz tear at the GE junction requiring endoscopic intervention with 7 [place] bipolar gold heater probe catheter to achieve hemostasis Exam Vital Signs Temp Pulse Resp BP Pulse Ox O2 Del Method O2 Flow Rate 98.6 F 111 H 21 H 132/78 H 99 Room Air 3 02/28/25 20:00 02/28/25 20:00 02/28/25 20:00 02/28/25 20:00 02/28/25 20:00 02/28/25 20:00 02/28/25 12:00 Objective Labs 02/28/25 05:18 02/28/25 05:18 Labs: Laboratory Results - last 24 hr 02/28/25 05:18 WBC 7.6 RBC 4.28 Hgb 12.1 Hct 35.4 L MCV 83 MCH 28.3 MCHC 34.2 RDW Std Deviation 38.3 Plt Count 201 Neut % (Auto) 63 Lymph % (Auto) 27 [place] % (Auto) 8 Eos % (Auto) 1 Baso % (Auto) 0 Neut # (Auto) 4.8 Lymph # (Auto) 2.1 [place] # (Auto) 0.6 Eos # (Auto) 0.1 Baso # (Auto) 0.0 Immature Gran # (Auto) 0.02 H Absolute Nucleated RBC 0.00 Immature Gran % 0 Nucleated RBC % 0 Sodium 141 Potassium 3.3 L Chloride 100 Carbon Dioxide 28.0 Anion Gap 13 BUN < 5 L Creatinine 0.7 Estim Creat Clear Calc 80.1 eGFR > 60 BUN/Creatinine Ratio 7 L Glucose 72 L Calculated Osmolality 277 Calcium 8.8 Corrected Calcium 9.1 Phosphorus 3.3 Magnesium 1.8 Total Bilirubin 0.5 AST 17 ALT 8 L Alkaline Phosphatase 60 Total Protein 5.7 Albumin 3.6 Globulin 2.1 L Albumin/Globulin Ratio 1.7 Impressions Impression: Large Dunia-Dela Cruz tear requiring endoscopic intervention Advance diet as tolerated Assessment & Plan Time Spent With Patient Time: Total time spent is greater than 50% in coordination of care (as documented) at patient's floor/unit and/or counseling patient:
[2025-02-28] MEDS: ESCITALOPRAM OXALATE 10 MG TABLET 20 MG PO (21:04)
[2025-02-28] MEDS: HYDROmorphone INJ 2 MG/ML VIAL 1 MG IVP (23:20)
[2025-03-01] VITALS: BP 103/66; PULSE 66; PULSE 70; RESP 20; TEMP 36.1; O2SAT 94
[2025-03-01] MEDS: MG HYD/AL HYD/SIME (Maalox Reg) SUSP 30 ML UDC 15 ML PO ×3 (01:51→09:01)
[2025-03-01] MEDS: SUCRALFATE SUSP 1 GM/10 ML UDC PO ×2 (01:51→05:46)
[2025-03-01 04:00] VITALS: BP 109/67; PULSE 66; PULSE 73; RESP 16; TEMP 36.9; O2SAT 98
[2025-03-01 05:58] LABS: Basophils # (Auto) 0.1 Thou/mm3 (0.0-0.2); Basophils % (Auto) 1 % (0-2.5); Eosinophils # (Auto) 0.2 Thou/mm3 (0.0-0.5); Eosinophils % (Auto) 3 % (0-10); Hematocrit 36.6 % (36.0-46.0); Hemoglobin 12.5 g/dL (12.0-16.0); Immature Granulocytes Auto 0.01 Thou/mm3 (0.00-0.00); Lymphocytes # (Auto) 2.6 Thou/mm3 (1.0-4.8); Lymphocytes % (Auto) 44 % (10-50); Mean Corpuscular HGB Conc 34.2 g/dl (31.0-37.0); Mean Corpuscular Hemoglobin 28.8 pg (25.0-35.0); Mean Corpuscular Volume 84 fL (80-100); Monocytes # (Auto) 0.6 Thou/mm3 (0.0-0.8); Monocytes % (Auto) 10 % (0-12); Neutrophils # (Auto) 2.4 Thou/mm3 (1.8-7.7); Neutrophils % (Auto) 41 % (37-80); Nucleated Red Blood Cell # 0.00 Thou/mm3 (0.00-0.00); Nucleated Red Blood Cell % 0 /100 WBC (0); Platelet Count 189 Thou/mm3 (140-440); RDW Standard Deviation 39.3 fL (36.4-46.3); Red Blood Count 4.34 Miln/mm3 (4.00-5.20); White Blood Count 5.8 Thou/mm3 (3.6-11.0)
[2025-03-01 06:34] LABS: Alanine Aminotransferase < 7 U/L (10-49); Albumin, Serum 3.5 gm/dL (3.5-5.0); Albumin/Globulin Ratio 1.8 (1.2-2.2); Alkaline Phosphatase 59 U/L (46-116); Anion Gap 7 (7-16); Aspartate Amino Transferase 14 U/L (0-34); BUN/Creatinine Ratio 7 Ratio (12-20); Bilirubin,Total 0.4 mg/dL (0.3-1.2); Blood Urea Nitrogen < 5 mg/dL (9-23); Calcium 8.9 mg/dL (8.3-10.6); Calcium (Corrected) 9.3 mg/dL (8.5-10.1); Carbon Dioxide 32.7 mMol/L (20.0-31.0); Chloride 102 mMol/L (98-107); Creatinine (Component) 0.7 mg/dL (0.6-1.3); Estimated Creatinine Clearance 80.1 mL/min (>60); Globulin 1.9 gm/dL (2.3-3.5); Glucose 80 mg/dL (74-106); Magnesium 2.2 mg/dL (1.6-2.6); Osmolality,Calculated 279 (275-295); Phosphorous 3.4 mg/dL (2.4-5.1); Potassium 4.1 mMol/L (3.4-5.1); Sodium 142 mMol/L (136-145); Total Protein 5.4 gm/dL (5.7-8.2); eGFR > 60 See Note
[2025-03-01 08:00] VITALS: PULSE 65
[2025-03-01 08:15] VITALS: BP 114/85; PULSE 77; RESP 20; TEMP 35.7; O2SAT 99
--- NOTE | 2025-03-01 08:25 | ESDS_ITS ---
Planned Discharge Date 03/01/25 DS: Providers Provider Date of admission: 02/25/25 23:14 Primary care physician: Estrellita Marshall MD Admitting Provider: Alejandrina Hernandez DO Attending Provider on Admission: Nas Plummer MD Consults: 02/25/25 23:03 Consult to Gastroenterology Stat Comment: Melena Consulting Provider: Nicky Camara Attending Provider on DC: Thai Weller DO Discharging Provider: Thai Weller DO DS: Diagnosis Problem List Completed Was Problem List Reviewed/Reconciled?: Yes Hospital Course Hospital Course Hospital course: Summary: Carmen Wong is 39 years old female with past medical history of duodenal ulcers, gastric ulcers cholecystectomy ,appendectomy, bilateral oophorectomy with hysterectomy, multinodular goiter, asthma, RICK, GERD, IBS presented to the ED on 02/25/2025 with complaints of abdominal pain and melena. She received EGD and found large Dunia Dela Cruz tear at the GE junction which has been coagulated by 7 Mauritian bipolar gold heater probe. Patient was discharged with instructions to continue taking Maalox and Sucralfate and follow up with GI, Dr. Camara within 2 weeks of discharge for Dunia-Dela Cruz tear. ED course: On ED visit vitals BP 128/100, pulse rate 95, respiratory 16, temperature 97.9 saturating 98% on room. Labs- Unremarkable lab. HCG positive with 7 (nml: <5 mIU/ml) CT abd/pelvis (02/25/2025): No renal or ureteral calculi, no hydronephrosis, Absent appendix, Fluid distended small bowel loops, consider ileus, enteritis such as Crohn disease Hospital Course: Upon admission, GI was consulted and endoscopy has been scheduled. Patient was given IV pantoprazole 40 mg twice daily and LR IVF 100 mL/h. NG tube has been placed which drained yellow gastric contents. Was given dilaudid 1 mg IV every 4 hour prn for pain control. Ondansetron 4 mg IV every 6 hours prn was also given to control her nausea. On 02/27/2025, EGD showed large Dunia Dela Cruz tear at the GE junction which has been coagulated by 7 Mauritian bipolar gold heater probe. Other findings include esophagitis and gastritis. Biopsies were done in the lower third of esophagus, upper third of esophagus, gastric antrum and in cardia. NG tube has been removed during endoscopy. Patient was given Carafate suspension 1 g 4 times daily and Maalox 15 mL p.o. every 4 hours. This morning, 03/01, patient's vitals and labs were stable, and the patient did not have any pain or new symptoms to report. Patient was discharged with instructions to continue taking Maalox and Sucralfate and follow up with GI, Dr. Camara within 2 weeks of discharge for Dunia-Dela Cruz tear. Instructions: Continue taking Maalox 15 mL by mouth every 4 hours and sucralfate 100 mg by mouth every 6 hours until you are seen by your PCP or GI physician Continue all other home medications as prescribed along with omeprazole, which was refilled Please follow-up with your PCP within 1 week of discharge or follow-up at the [facility] [address] [place] [address] Follow-up with Dr. Camara, gastroenterology, within 2 weeks of discharge for Dunia-Dela Cruz tear If your symptoms worsen or if you develop new fever/chills, chest pain, shortness of breath, difficulty swallowing or bleeding - please come back to the ED immediately STABLE to discharge to HOME #Upper GI bleed R/O #Dunia Dela Cruz tear at GE junction #Abdominal pain 2/2 ileus vs enteritis vs delayed gastric emptying #Asthma. #GERD #Anxiety Assessment and plan discussed with my attending physician Dr. Elian Weller (PGY-1) - Internal medicine resident Time Spent with Patient Time attestation: Total time spent providing and/or coordinating discharge services: Time spent: Greater than 30 minutes Exam Vital Signs Temp Pulse Resp BP Pulse Ox O2 Del Method O2 Flow Rate 96.3 F L 77 20 114/85 H 99 Room Air 3 03/01/25 08:15 03/01/25 08:15 03/01/25 08:15 03/01/25 08:15 03/01/25 08:15 03/01/25 08:15 02/28/25 12:00 Narrative Exam General: No acute distress, well nourished, AAO x3 Eye: PERRL, EOMI, normal conjunctiva, no scleral icterus HENT: Normocephalic, atraumatic, hearing intact to conversation at normal volume, moist oral mucosa Neck: Supple, non-tender, no JVD, no lymphadenopathy Lungs: Non-labored respirations, symmetric chest rise, Clear to auscultate bilaterally, No wheezing, rhonchi, crackles Heart: Peripheral pulses intact bilaterally, Regular Rate and Rhythm. Abdomen: Soft, non-tender, non-distended, no palpable masses Musculoskeletal: Normal range of motion and strength, No cyanosis or edema, No visible joint swelling Skin: Skin is warm, dry, no rashes or lesions. Psychiatric: Cooperative, appropriate mood and affect, Awake and alert, not agitated Neuro: Cranial nerves II-XII grossly intact. Strength 5/5 throughout. Sensations intact to light touch. Discharge Plan Plan Patient Disposition: HOME (Self Care) Care Plan Goals: Continue taking Maalox 15 mL by mouth every 4 hours and sucralfate 100 mg by mouth every 6 hours until you are seen by your Primary Care Physician or Underwriting Assistant physician Continue all other home medications as prescribed along with omeprazole, which was refilled Please follow-up with your Primary Care Physician within 1 week of discharge or follow-up at the [address] [place], [place] [id number] Follow-up with Dr. Camara, gastroenterology, within 2 weeks of discharge for Dunia-Dela Cruz tear If your symptoms worsen or if you develop new fever/chills, chest pain, shortness of breath, difficulty swallowing or bleeding - please come back to the Emergency Department immediately Prescriptions/Referrals Prescriptions/Med Rec: New sucralfate 100 mg/mL Suspension 1 g PO Q6H 30 Days Qty: 1200 0RF alum-mag hydroxide-simeth 200-200-20 mg/5 mL Suspension 15 ml PO Q4HR 30 Days Qty: 3000 0RF Continued escitalopram oxalate [Lexapro] 20 mg Tablet 20 mg PO HS bupropion HCl 100 mg tablet 100 mg PO BID omeprazole 40 mg capsule,delayed release(DR/EC) 40 mg PO QAM 30 Days Qty: 30 0RF Referrals: Nicky Camara MD [Physician, Gastroenterology] Estrellita Marshall MD [Primary Care Provider] Patient/Caregiver Discharge Instructions Discharge Activity: activity as tolerated Education Materials: Abdominal Pain, Anatomy of the Digestive System Print Language: Sinhala Stand Alone Forms: [employer] Info., Patient Portal Info Letter, Work/Release Restrictions Discharge Order Discharge Orders: Discharge (Routine); Ordered 03/01/25 Ordered By: Thai Weller Quality Discharge Quality Measures VTE prophylaxis Attestestation MD Attestation I reviewed labs, imaging, EKG, home medications and prior available records. Face to face evaluation was performed by me. I have personally examined the patient and discussed assessment and plan with the IM team. I reviewed the resident note and agree with the plan with exceptions as below. Abdominal pain Melena Asthma without exacerbation GERD Anxiety Consulted GI Status post EGD that showed esophagitis/gastritis with Dunia-Dela Cruz tear She tolerated her advance diet Continue Maalox, Carafate, and PPI Time spent is 39 minutes. More than 50% of the time was spent on patient education and coordination of care.
--- NOTE | 2025-03-01 10:44 | PC.NURSE ---
Spoke with Dr. Weller at 1044, patient requested a note for work stating she's been in the hospital and when she can return to work. Patient requested from to return to work on ThursdayMarch 07. Dr. Brewer agreed with the request for the work document.
--- NOTE | 2025-03-01 21:05 | ESPR_ITS ---
Documentation for date of: 03/01/25 Subjective Subjective Interval history: Late entry for the note hemoglobin hematocrit 12.5 and 36.1 status post bipolar gold heater probe of the large Dunia-Dela Cruz tear Discussed with the patient outpatient follow-up Exam Vital Signs Temp Pulse Resp BP Pulse Ox O2 Del Method O2 Flow Rate 96.3 F L 77 20 114/85 H 99 Room Air 3 03/01/25 08:15 03/01/25 08:15 03/01/25 08:15 03/01/25 08:15 03/01/25 08:15 03/01/25 08:15 02/28/25 12:00 Objective Labs 03/01/25 05:31 03/01/25 05:31 Labs: Laboratory Results - last 24 hr 03/01/25 05:31 WBC 5.8 RBC 4.34 Hgb 12.5 Hct 36.6 MCV 84 MCH 28.8 MCHC 34.2 RDW Std Deviation 39.3 Plt Count 189 Neut % (Auto) 41 Lymph % (Auto) 44 Mccracken % (Auto) 10 Eos % (Auto) 3 Baso % (Auto) 1 Neut # (Auto) 2.4 Lymph # (Auto) 2.6 Mccracken # (Auto) 0.6 Eos # (Auto) 0.2 Baso # (Auto) 0.1 Immature Gran # (Auto) 0.01 H Absolute Nucleated RBC 0.00 Immature Gran % 0 Nucleated RBC % 0 Sodium 142 Potassium 4.1 D Chloride 102 Carbon Dioxide 32.7 H Anion Gap 7 BUN < 5 L Creatinine 0.7 Estim Creat Clear Calc 80.1 eGFR > 60 BUN/Creatinine Ratio 7 L Glucose 80 Calculated Osmolality 279 Calcium 8.9 Corrected Calcium 9.3 Phosphorus 3.4 Magnesium 2.2 Total Bilirubin 0.4 AST 14 ALT < 7 L Alkaline Phosphatase 59 Total Protein 5.4 L Albumin 3.5 Globulin 1.9 L Albumin/Globulin Ratio 1.8 Impressions Impression: Large Dunia-Dela Cruz tear requiring endoscopic intervention with bipolar gold heater probe for control of hemorrhage Doing well postprocedure and nausea vomiting has improved Okay to discharge Will follow-up as an outpatient Assessment & Plan Time Spent With Patient Time: Total time spent is greater than 50% in coordination of care (as documented) at patient's floor/unit and/or counseling patient:
== END 2025-03-01 12:33 | disposition home or self-care (01) | DRG 369 ==
LOC: SERX 21:40 → SERHOLD 02-27 05:44 → S3SX 02-27 05:44
PROVIDERS: Physician Assistant; Specialist; Student in an Organized Health Care Education/Training Program; Admitting Provider Internal Medicine; Emergency Provider Emergency Medicine; PCP Internal Medicine; Visit Provider Student in an Organized Health Care Education/Training Program
PROC: (CPT 43239; principal; 2025-02-27 18:30)
DX: K22.6 Gastro-esophageal laceration-hemorrhage syndrome (principal); K56.7 Ileus, unspecified; K21.00 Gastro-esophageal reflux disease with esophagitis, without bleeding; K29.71 Gastritis, unspecified, with bleeding; J45.909 Unspecified asthma, uncomplicated; K21.9 Gastro-esophageal reflux disease without esophagitis; K58.9 Irritable bowel syndrome, unspecified; F41.9 Anxiety disorder, unspecified; G47.33 Obstructive sleep apnea (adult) (pediatric); Z79.899 Other long term (current) drug therapy; Z90.710 Acquired absence of both cervix and uterus; K90.0 Celiac disease; Z90.5 Acquired absence of kidney; Z90.49 Acquired absence of other specified parts of digestive tract; Z87.11 Personal history of peptic ulcer disease; Z87.19 Personal history of other diseases of the digestive system
CPT/HCPCS: 36415; 71045; 74018; 74177; 80053; 80061; 80307; 81001; 83605; 83690; 83735; 84100; 84443; 84702; 84703; 85025; 85610; 86850; 86900; 86901; 93225; 96361; 96374; 96375; 96376; 99285; A4649; J1171; J1200; J2250; J2270; J2405; J2470; J3010; J7120; J7121; Q0162; Q9967; A9270

== ENCOUNTER 2025-03-10 12:05 | Emergency (ER) | payer BC, SELFPAY ==
[2025-03-10 12:07] VITALS: BMI 22.2
[2025-03-10 12:39] VITALS: BP 121/83; PULSE 87; RESP 18; TEMP 36.9; O2SAT 99
--- NOTE | 2025-03-10 12:45 | EDNOTE_ITS ---
ED Skin Abcess FB-RME/HPI General Chief complaint: Nausea/Vomiting/Diarrhea Stated complaint: REDNESS TO L HAND, DIARRHEA WITH N/V X 1DAY Time Seen by Provider: 03/10/25 12:39 Source: patient Arrival date/time: 03/10/25 12:05 39-year-old female with no known medical history presents to the emergency room with a chief complaint of redness to her left hand. Patient states she was recently admitted and had started after a blown IV attempt Mode of arrival: ambulatory Limitations: no limitations Related Data Home Medications ?Medication ?Instructions ?Recorded ?Confirmed escitalopram oxalate 20 mg tablet 20 mg PO HS 06/21/18 02/26/25 (Lexapro) bupropion HCl 100 mg tablet 100 mg PO BID 02/26/2505/11 Previous Rx's ?Medication ?Instructions ?Recorded aluminum-mag hydroxide-simethicone 15 ml PO Q4HR 1 thu #3,000 mL 03/01/25 200 mg-200 mg-20 mg/5 mL oral susp omeprazole 40 mg capsule,delayed 40 mg PO QAM 1 month #30 caps 03/01/25 release sucralfate 100 mg/mL oral 1 g (10 mL) PO Q6H 1 month # 1,200 03/01/25 suspension mL amoxicillin 875 mg-potassium 1 tab PO BID 7 days #14 t abs 03/10/25 clavulanate 125 mg tablet ondansetron 4 mg disintegrating 4 mg PO Q8H PRN nausea and 03/10/25 tablet vomiting #14 tabs Allergies Allergy/AdvReac Type Severity Reaction Status Date / Time ciprofloxacin Allergy Unknown Verified 03/10/25 12:11 doxycycline Allergy Unknown Verified 03/10/25 12:11 gluten Allergy Abdominal Verified 03/10/25 12:11 Pain Review of Systems Review of Systems Systems Reviewed: All systems reviewed, normal except as documented Constitutional Constitutional: Reports system reviewed and no additional complaints, except as documented, Denies fatigue, Denies fever(s), Denies headache(s) and Denies weakness Eyes Eyes: Reports system reviewed and no additional complaints, except as documented, Denies blurry vision and Denies change in vision ENT Ears, Nose, Mouth, and Throat: Reports system reviewed and no additional complaints, except as documented, Denies otalgia, Denies headache(s), Denies nasal congestion, Denies throat swelling and Denies vertigo Cardiovascular Cardiovascular: Reports system reviewed and no additional complaints, except as documented, Denies chest pain, Denies dyspnea and Denies dyspnea on exertion Respiratory Respiratory: Reports system reviewed and no additional complaints, except as documented, Denies chest congestion, Denies cough, Denies dyspnea, Denies dyspnea on exertion and Denies wheezing Gastrointestinal Gastrointestinal: Reports system reviewed and no additional complaints, except as documented, Denies abdominal pain, Denies cramping, Denies nausea and Denies vomiting Genitourinary Genitourinary: Reports system reviewed and no additional complaints, except as documented Musculoskeletal Musculoskeletal: Reports system reviewed and no additional complaints, except as documented and Denies back pain Integumentary/Breasts Skin/Breast: Reports system reviewed and no additional complaints, except as documented and Reports wounds Neurologic Neurologic: Reports system reviewed and no additional complaints, except as documented, Denies confusion, Denies headache(s), Denies lack of coordination, Denies vertigo and Denies weakness Psychiatric Psychiatric: Reports system reviewed and no additional complaints, except as documented, Denies anxiety, Denies confusion, Denies depression, Denies paranoia, Denies suicidal ideation and Denies tactile hallucinations Endocrine Endocrine: Reports system reviewed and no additional complaints, except as documented and Denies fatigue Hematologic/Lymphatic Hematologic/Lymphatic: Reports system reviewed and no additional complaints, except as documented and Denies lymphadenopathy Allergic/Immunologic Allergic/Immunologic: Reports system reviewed and no additional complaints, except as documented, Denies throat swelling, Denies urticaria and Denies wheezing Past Medical History Past Medical History NEUROLOGIC: Positive Neurological Disorders and Migraine; Negative Seizures CARDIAC: Negative Cardiac Disorders or Congestive Heart Failure RESPIRATORY: Positive Asthma; Negative Chronic Obstructive Pulmonary Disease (COPD) GASTROINTESTINAL: Positive Gastrointestinal Disorders (ENLARGED LIVER) and Gastroesophageal Reflux Disease GENITOURINARY: Positive Genitourinary Disorders (NEPHRECTOMY HX); Negative Renal Disease REPRODUCTIVE: Positive Previous Pregnancies () MUSCULOSKELETAL: Negative Musculoskeletal Disorders ENDOCRINE: Negative Endocrine Disorders, Diabetes Mellitus Type 1 or Diabetes Mellitus Type 2 HEMATOLOGIC: Negative Blood Disorders or Sickle Cell Disease PSYCHO/SOCIAL: Positive Depression and Anxiety OTHER HISTORY: Negative Autoimmune Disease, Blood Transfusions, Blood Transfusion Reaction, Anesthesia Reactions, Organ Transplant, MRSA, VRSA, Vancomycin-Resistant Enterococci, Clostridium Difficile or Cancer Family History FAMILY HISTORY: Negative Family Cardiac Disorders Surgical History SURGICAL: Positive Nose Surgery (SEPTOPLASTY), Abdominal Surgery, Nephrectomy, Hysterectomy and Section; Negative Cardiac Surgery, Endocrine Surgery or Organ Transplant Social History SMOKING STATUS: Never smoker SUBSTANCE USE: does not use ED Exam General Limitations: Present no limitations General appearance: Present alert and in no apparent distress Head Head exam: Present atraumatic Eye Eye exam: Present normal appearance, PERRL and EOMI ENT ENT exam: Present normal exam, normal oropharynx and mucous membranes moist Neck Neck exam: Present normal inspection, full ROM and trachea midline Chest Chest inspection: Present normal inspection and symmetric chest wall rise Respiratory Respiratory exam: Present normal lung sounds bilaterally Cardiovascular Cardiovascular exam: Present regular rate, normal rhythm and normal heart sounds Abdominal Exam Abdominal exam: Present soft and normal bowel sounds Extremities Exam Extremities exam: Present normal inspection and full ROM Expanded Upper Extremity Exam Shoulder exam: Present normal inspection Arm exam: Present normal inspection Elbow exam: Present normal inspection Forearm/Wrist exam: Present normal inspection Hand exam: Present tenderness and erythema Hand L/R back image: 2 1. Erythema and tenderness Back Exam Back exam: Present normal inspection and full ROM Neurological Exam Neurological exam: Present alert, oriented X3 and CN II-XII intact Psychiatric Psychiatric exam: Present normal affect and normal mood Skin Skin exam: Present warm, dry, intact and normal color Course Quality Measures none Vital Signs Vital signs: Vital Signs Temperature 98.5 F 03/10/25 12:39 Pulse Rate 87 03/10/25 12:39 Respiratory Rate 18 03/10/25 12:39 Blood Pressure 121/83 03/10/25 12:39 Pulse Oximetry (%) 99 03/10/25 12:39 Oxygen Delivery Method Room Air 03/10/25 12:39 Skin / Abscess / Foreign Body MDM Narrative MDM Narrative:: 39-year-old female with no known medical history presents to the emergency room with a chief complaint of redness to her left hand. Patient states she was recently admitted and had started after a blown IV attempt Patient is hemodynamically stable and in no apparent distress Physical examination shows some redness to the left hand. Patient states this initially started as a blown IV. There is no swelling there is some tenderness some erythema. Antibiotics are sent to the patient's pharmacy Patient was discharged and educated to follow-up with primary care provider in the next 24 to 48 hours and return to the emergency room for any evidence of worsening signs or symptoms Patient data External records reviewed:: [facility] previous records Clinical information provided by:: patient Social determinants that could affect healthcare access:: none Patient has the following chronic illnesses:: No chronic illness How is presenting disease/condition affected by chronic disease/condition?: no chronic disease Evaluation data The following diagnostics were reviewed and interpreted by me:: lab results and radiology exam(s) Lab and/or radiology exams considered but not ordered:: Labs and radiology exams considered and ordered Interpretation Summary: N/A Medications / Prescriptions Medications or Prescriptions considered but not ordered:: No medication given Medication administrations:: No medication given Consultations Consultation(s) initiated? (list below): No Diagnosis Skin/Abscess Differential Diagnosis: abscess of skin or subcutaneous tissue, cellulitis and contact dermatitis Most likely diagnosis given after review of the tests above:: Cellulitis Admission Indicated Admission indicated?: not indicated Admission Request Was there a request for admission?: No Disposition Plan Disposition Plan: Discharge Discharge Attestation Discharge Attestation: The patient and all family members were given an opportunity to ask questions and understood the discharge instructions. Discharge instructions specifically effects, indications for sooner follow up or return to the emergency department, and the expected course of current diagnosis. Patient condition: Stable Discharge Plan Plan Patient Disposition: HOME (Self Care) Discharge Disposition comment: Stable Prescriptions/Referrals Prescriptions/Med Rec: New ondansetron 4 mg tablet,disintegrating 4 mg PO Q8H PRN (Reason: nausea and vomiting) Qty: 14 0RF amoxicillin-pot clavulanate 875-125 mg tablet 1 tab PO BID 7 Days Qty: 14 0RF No Action escitalopram oxalate [Lexapro] 20 mg Tablet 20 mg PO HS bupropion HCl 100 mg tablet 100 mg PO BID sucralfate 100 mg/mL Suspension 1 g PO Q6H 30 Days Qty: 1200 0RF alum-mag hydroxide-simeth 200-200-20 mg/5 mL Suspension 15 ml PO Q4HR 30 Days Qty: 3000 0RF omeprazole 40 mg capsule,delayed release(DR/EC) 40 mg PO QAM 30 Days Qty: 30 0RF Problem List Clinical Impression: Cellulitis of hand, left Patient/Caregiver Discharge Instructions Education Materials: Discharge Instructions for Cellulitis, ED Cellulitis Additional Instructions: Please follow-up with your primary care provider in the next 24 to 48 hours Medication was sent to your pharmacy please pick it up and take it as indicated For any evidence of worsening signs or symptoms return to emergency room immediately Print Language: Sami Stand Alone Forms: [employer] Info., Work/School Release, Patient Portal Info Letter PA/WINDOW DECORATOR Supervising Physician PA/WINDOW DECORATOR Supervising Physician: Dr. Fernandez
== END 2025-03-10 13:51 | disposition home or self-care (01) ==
LOC: SERX 12:52
PROVIDERS: Emergency Provider Nurse Practitioner Family
DX: L03.114 Cellulitis of left upper limb (principal)
CPT/HCPCS: 99281